=== PATIENT | female | born 1950 | race Caucasian/White ===

== ENCOUNTER 2017-12-19 14:19 | Emergency (ER) | payer OTHER ==
[2017-12-19 16:09] LABS: ADD MAN DIFF? NO
[2017-12-19 16:11] LABS: WHITE BLOOD COUNT 8.9 10^3/ul (4.8-10.8)
[2017-12-19 16:11] LABS: BASOPHIL # 0.1 10^3/ul (0.0-0.1); BASOPHILS % 0.8 % (0.0-2.0); EOSINOPHILS % 0.3 % (0.0-7.0); HEMATOCRIT 37.1 % (37.0-47.0); LYMPHOCYTES % 34.4 % (15.0-51.0); MEAN CORPUSCULAR HEMOGLOBIN 27.6 pg (29.0-33.0); MEAN CORPUSCULAR HGB CONC 32.3 g/dl (32.0-37.0); MEAN CORPUSCULAR VOLUME 85.5 fl (82.0-101.0); MEAN PLATELET VOLUME 9.4 fl (7.4-10.4); MONOCYTES % 10.8 % (0.0-11.0); NEUTROPHIL # 4.6 10^3/ul (1.6-7.5); NEUTROPHILS % 52.5 % (39.0-77.0); PLATELET COUNT 545 10^3/UL (140-415); RED BLOOD COUNT 4.34 10^6/ul (4.20-5.40); RED CELL DISTRIBUTION WIDTH 16.2 % (11.5-14.5)
[2017-12-19 16:35] LABS: ALANINE AMINOTRANSFERASE 47 IU/L (13-69); ALBUMIN 2.9 g/dl (3.3-4.9); ALBUMIN/GLOBULIN RATIO 0.85; ALKALINE PHOSPHATASE 153 IU/L (42-121); ANION GAP 15 (8-16); ASPARTATE AMINO TRANSFERASE 34 IU/L (15-46); BILIRUBIN,INDIRECT 0.2 mg/dl (0-1.1); BILIRUBIN,TOTAL 0.2 mg/dl (0.2-1.3); BLOOD UREA NITROGEN 6 mg/dl (7-20); CALCIUM 9.3 mg/dl (8.4-10.2); CARBON DIOXIDE 25 mmol/L (21-31); CHLORIDE 104 mmol/L (97-110); CREATININE 0.49 mg/dl (0.44-1.00); GLUCOSE 86 mg/dl (70-220); POTASSIUM 3.7 mmol/L (3.5-5.1); SODIUM 140 mmol/L (135-144); TOTAL PROTEIN 6.3 g/dl (6.1-8.1)
[2017-12-19 16:43] LABS: INR 1.28; PROTIME 16.2 Sec (11.9-14.9); PT RATIO 1.3
[2017-12-19 16:44] LABS: PARTIAL THROMBOPLASTIN TIME 46.2 Sec (25.0-35.0)
[2017-12-19 16:47] LABS: LACTIC ACID 2.4 mmol/L (0.5-2.0)
[2017-12-19 16:56] LABS: ADD UMIC YES; UR ASCORBIC ACID 40 mg/dL (NEGATIVE); UR BACTERIA FEW /HPF (NONE SEEN); UR BILIRUBIN (Dip) NEGATIVE (NEGATIVE); UR BLOOD (Dip) NEGATIVE (NEGATIVE); UR CLARITY CLOUDY (CLEAR); UR COLOR YELLOW (YELLOW); UR GLUCOSE (Dip) 3+ mg/dL (NEGATIVE); UR KETONES (Dip) NEGATIVE (NEGATIVE); UR LEUKOCYTE ESTERASE (Dip) 1+ Leu/ul (NEGATIVE); UR MUCUS FEW /HPF (NONE SEEN); UR NITRITE (Dip) NEGATIVE (NEGATIVE); UR RBC 2 /HPF (0-5); UR SPECIFIC GRAVITY (Dip) 1.015 (1.003-1.030); UR SQUAMOUS EPITHELIAL CELL FEW /HPF (FEW); UR TOTAL PROTEIN (Dip) NEGATIVE (NEGATIVE); UR UROBILINOGEN (Dip) NEGATIVE (NEGATIVE); UR WBC 29 /HPF (0-5)
[2017-12-19] MEDS: SOD CHLORIDE 0.9% 1,000 ML IV ×2 (16:56→19:24)
[2017-12-19] MEDS: CIPROFLOXACIN 400MG/D5W 200 ML IVPB ×2 (17:28→19:24)
[2017-12-19] MEDS: metroNIDAZOLE 500 MG/NS (PMX) 100 ML IVPB (17:34)
[2017-12-19 18:00] LABS: LACTIC ACID 1.6 mmol/L (0.5-2.0)
== END 2017-12-19 21:50 | disposition home or self-care (01) ==
LOC: E/R 14:19
DX: K57.92 Diverticulitis of intestine, part unspecified, without perforation or abscess without bleeding (principal); N39.0 Urinary tract infection, site not specified; E86.0 Dehydration; R07.9 Chest pain, unspecified; I10 Essential (primary) hypertension; E11.9 Type 2 diabetes mellitus without complications; Z79.4 Long term (current) use of insulin
CPT/HCPCS: 36415; 71045; 74176; 80053; 81001; 83605; 85025; 85610; 85730; 87040; 87086; 93005; 96361; 96365; 96375; 99285-25

== ENCOUNTER 2017-12-21 17:44 | Inpatient (IN) | payer OTHER ==
[2017-12-21 21:39] LABS: ADD MAN DIFF? NO
[2017-12-21 21:42] LABS: BASOPHIL # 0.1 10^3/ul (0.0-0.1); BASOPHILS % 0.9 % (0.0-2.0); EOSINOPHILS # 0.1 10^3/ul (0.0-0.5); EOSINOPHILS % 0.7 % (0.0-7.0); HEMATOCRIT 34.3 % (37.0-47.0); HEMOGLOBIN 11.5 g/dl (12.0-16.0); LYMPHOCYTES # 2.9 10^3/ul (0.8-2.9); LYMPHOCYTES % 30.2 % (15.0-51.0); MEAN CORPUSCULAR HEMOGLOBIN 28.1 pg (29.0-33.0); MEAN CORPUSCULAR HGB CONC 33.5 g/dl (32.0-37.0); MEAN CORPUSCULAR VOLUME 83.9 fl (82.0-101.0); MEAN PLATELET VOLUME 9.1 fl (7.4-10.4); MONOCYTE # 1.1 10^3/ul (0.3-0.9); MONOCYTES % 11.8 % (0.0-11.0); NEUTROPHIL # 5.3 10^3/ul (1.6-7.5); PLATELET COUNT 563 10^3/UL (140-415); RED BLOOD COUNT 4.09 10^6/ul (4.20-5.40); RED CELL DISTRIBUTION WIDTH 16.6 % (11.5-14.5)
[2017-12-21 21:42] LABS: WHITE BLOOD COUNT 9.6 10^3/ul (4.8-10.8)
[2017-12-21] MEDS: ONDANSETRON 4 MG INJ IV ×2 (21:54→23:12)
[2017-12-21] MEDS: PIPER-TAZO 3.375 GM IV (PMX) 100 ML IVPB (21:55)
[2017-12-21] MEDS: SOD CHLORIDE 0.9% 1,000 ML IV (21:55)
[2017-12-21 22:02] LABS: ALANINE AMINOTRANSFERASE 42 IU/L (13-69); ALBUMIN 3.3 g/dl (3.3-4.9); ALBUMIN/GLOBULIN RATIO 1.03; ALKALINE PHOSPHATASE 130 IU/L (42-121); ANION GAP 16 (8-16); ASPARTATE AMINO TRANSFERASE 40 IU/L (15-46); BILIRUBIN,INDIRECT 0.1 mg/dl (0-1.1); BILIRUBIN,TOTAL 0.1 mg/dl (0.2-1.3); BLOOD UREA NITROGEN 3 mg/dl (7-20); CALCIUM 8.8 mg/dl (8.4-10.2); CARBON DIOXIDE 23 mmol/L (21-31); CHLORIDE 103 mmol/L (97-110); CREATININE 0.82 mg/dl (0.44-1.00); GLUCOSE 99 mg/dl (70-220); LIPASE 10 U/L (23-300); POTASSIUM 4.1 mmol/L (3.5-5.1); SODIUM 138 mmol/L (135-144); TOTAL PROTEIN 6.5 g/dl (6.1-8.1)
[2017-12-21 22:05] LABS: INR 1.13; PROTIME 14.7 Sec (11.9-14.9); PT RATIO 1.1
[2017-12-21 22:06] LABS: PARTIAL THROMBOPLASTIN TIME 43.5 Sec (25.0-35.0)
[2017-12-21 22:22] LABS: TROPONIN-I < 0.012 ng/ml (0.00-0.12)
[2017-12-21 23:09] LABS: LACTIC ACID 1.3 mmol/L (0.5-2.0)
[2017-12-21] MEDS: morphine 4 MG/ML VIAL IV (23:12)
[2017-12-21] MEDS ORDERED: ACETAMINOPHEN 325 MG TAB PO (23:30)
[2017-12-21] MEDS ORDERED: ONDANSETRON 4 MG INJ IV (23:30)
[2017-12-22] MEDS ORDERED: NACL 0.9% 3 ML SYG IV
[2017-12-22] MEDS ORDERED: ALBUTEROL/IPRATROPIUM (NEB) 3 ML AMP HHN
[2017-12-22] MEDS: SOD CHLORIDE 0.9% 1,000 ML IV (00:33)
[2017-12-22 00:34] LABS: LACTIC ACID 1.2 mmol/L (0.5-2.0)
[2017-12-22] MEDS: INSULIN ASPART [NOVOLOG] 3 ML PEN SC ×5 (01:00→16:42)
[2017-12-22] MEDS: ACCU-CHEK XX (02:00)
[2017-12-22] MEDS: DEXTROSE 5%-0.45% NACL 1,000 ML IV ×2 (02:32→09:35)
[2017-12-22 04:29] LABS: LACTIC ACID 0.9 mmol/L (0.5-2.0)
[2017-12-22 05:36] LABS: ADD UMIC YES; UR ASCORBIC ACID NEGATIVE (NEGATIVE); UR BACTERIA FEW /HPF (NONE SEEN); UR BILIRUBIN (Dip) NEGATIVE (NEGATIVE); UR BLOOD (Dip) NEGATIVE (NEGATIVE); UR BUDDING YEAST FEW /HPF (NONE SEEN); UR CLARITY CLOUDY (CLEAR); UR COLOR YELLOW (YELLOW); UR GLUCOSE (Dip) 3+ mg/dL (NEGATIVE); UR KETONES (Dip) NEGATIVE (NEGATIVE); UR LEUKOCYTE ESTERASE (Dip) 3+ Leu/ul (NEGATIVE); UR MUCUS FEW /HPF (NONE SEEN); UR NITRITE (Dip) NEGATIVE (NEGATIVE); UR NONSQUAMOUS EPITHELIAL CELL 3 /HPF (NONE SEEN); UR RBC 10 /HPF (0-5); UR SPECIFIC GRAVITY (Dip) 1.007 (1.003-1.030); UR SQUAMOUS EPITHELIAL CELL MODERATE /HPF (FEW); UR TOTAL PROTEIN (Dip) NEGATIVE (NEGATIVE); UR UROBILINOGEN (Dip) NEGATIVE (NEGATIVE); UR WBC 154 /HPF (0-5)
[2017-12-22] MEDS: metroNIDAZOLE 500 MG/NS (PMX) 100 ML IVPB ×2 (05:51→13:43)
[2017-12-22] MEDS: morphine 2 MG INJ IV ×2 (06:01→19:16)
[2017-12-22 07:42] LABS: ADD MAN DIFF? NO
[2017-12-22 07:50] LABS: WHITE BLOOD COUNT 6.5 10^3/ul (4.8-10.8)
[2017-12-22 07:50] LABS: BASOPHIL # 0.1 10^3/ul (0.0-0.1); BASOPHILS % 1.1 % (0.0-2.0); EOSINOPHILS # 0.1 10^3/ul (0.0-0.5); EOSINOPHILS % 1.7 % (0.0-7.0); HEMATOCRIT 29.2 % (37.0-47.0); HEMOGLOBIN 9.5 g/dl (12.0-16.0); LYMPHOCYTES # 2.1 10^3/ul (0.8-2.9); LYMPHOCYTES % 32.4 % (15.0-51.0); MEAN CORPUSCULAR HEMOGLOBIN 27.5 pg (29.0-33.0); MEAN CORPUSCULAR HGB CONC 32.5 g/dl (32.0-37.0); MEAN CORPUSCULAR VOLUME 84.6 fl (82.0-101.0); MEAN PLATELET VOLUME 9.6 fl (7.4-10.4); MONOCYTES % 15.5 % (0.0-11.0); NEUTROPHIL # 3.1 10^3/ul (1.6-7.5); NEUTROPHILS % 48.5 % (39.0-77.0); PLATELET COUNT 462 10^3/UL (140-415); RED BLOOD COUNT 3.45 10^6/ul (4.20-5.40); RED CELL DISTRIBUTION WIDTH 16.7 % (11.5-14.5)
[2017-12-22 08:37] LABS: ALANINE AMINOTRANSFERASE 33 IU/L (13-69); ALBUMIN 2.3 g/dl (3.3-4.9); ALBUMIN/GLOBULIN RATIO 0.92; ALKALINE PHOSPHATASE 101 IU/L (42-121); ANION GAP 13 (8-16); ASPARTATE AMINO TRANSFERASE 24 IU/L (15-46); BILIRUBIN,INDIRECT 0.1 mg/dl (0-1.1); BILIRUBIN,TOTAL 0.1 mg/dl (0.2-1.3); BLOOD UREA NITROGEN 2 mg/dl (7-20); CALCIUM 7.8 mg/dl (8.4-10.2); CARBON DIOXIDE 20 mmol/L (21-31); CHLORIDE 111 mmol/L (97-110); CREATININE 0.76 mg/dl (0.44-1.00); GLUCOSE 97 mg/dl (70-220); PHOSPHORUS 4.9 mg/dl (2.5-4.9); POTASSIUM 3.3 mmol/L (3.5-5.1); SODIUM 141 mmol/L (135-144); TOTAL PROTEIN 4.8 g/dl (6.1-8.1)
[2017-12-22] MEDS: LISINOPRIL 5 MG TAB PO (08:40)
[2017-12-22] MEDS: FAMOTIDINE 20 MG INJ IV ×2 (08:40→21:51)
[2017-12-22] MEDS: CIPROFLOXACIN 400MG/D5W 200 ML IVPB (10:16)
[2017-12-22] MEDS: ONDANSETRON 4 MG INJ IV ×2 (12:21→19:17)
[2017-12-22] MEDS: PIPER-TAZO 3.375 GM IV (PMX) 100 ML IVPB (15:15)
[2017-12-22] MEDS ORDERED: GLUCAGON 1 MG INJ IM (16:30)
[2017-12-22] MEDS ORDERED: GLUCOSE GEL 15 GRAM TUBE PO ×2 (16:30)
[2017-12-22] MEDS ORDERED: DEXTROSE 50% 50 ML SYRINGE IV (16:30)
[2017-12-22] MEDS ORDERED: GLUCOSE GEL 15 GRAM TUBE BUCCAL (16:30)
[2017-12-22] MEDS: 1/2 NS + KCL 20 MEQ 1,000 ML IV (16:38)
[2017-12-22] MEDS: POTASSIUM CHLORIDE (SR) 20 MEQ TAB PO (16:38)
[2017-12-22] MEDS ORDERED: INSULIN ASPART [NOVOLOG] 3 ML PEN SC (21:00)
[2017-12-22] MEDS: Insulin NOVOLOG SS MILD Algorithm (SS with meals and bedtime) SC (21:00)
[2017-12-22] MEDS: ATORVASTATIN 10 MG TAB PO (21:51)
[2017-12-22] MEDS: INSULIN GLARGINE [LANtus] 3 ML PEN SC (22:00)
[2017-12-23] MEDS: PIPER-TAZO 3.375 GM IV (PMX) 100 ML IVPB ×4 (00:17→18:03)
[2017-12-23] MEDS: ACCU-CHEK XX (02:00)
[2017-12-23] MEDS ORDERED: ACCUCHECK AT 2AM (Patients on SS coverage) XX (02:00)
[2017-12-23] MEDS: morphine 2 MG INJ IV ×2 (04:56→16:40)
[2017-12-23] MEDS: ONDANSETRON 4 MG INJ IV (04:56)
[2017-12-23] MEDS: 1/2 NS + KCL 20 MEQ 1,000 ML IV ×3 (04:56→21:29)
[2017-12-23 05:46] LABS: ADD MAN DIFF? NO
[2017-12-23 05:54] LABS: BASOPHIL # 0.1 10^3/ul (0.0-0.1); EOSINOPHILS # 0.1 10^3/ul (0.0-0.5); EOSINOPHILS % 1.6 % (0.0-7.0); HEMATOCRIT 30.5 % (37.0-47.0); LYMPHOCYTES % 29.1 % (15.0-51.0); MEAN CORPUSCULAR HEMOGLOBIN 27.8 pg (29.0-33.0); MEAN CORPUSCULAR HGB CONC 32.8 g/dl (32.0-37.0); MEAN CORPUSCULAR VOLUME 84.7 fl (82.0-101.0); MEAN PLATELET VOLUME 9.1 fl (7.4-10.4); MONOCYTES % 13.9 % (0.0-11.0); NEUTROPHIL # 3.7 10^3/ul (1.6-7.5); NEUTROPHILS % 53.5 % (39.0-77.0); PLATELET COUNT 473 10^3/UL (140-415)
[2017-12-23 06:13] LABS: ANION GAP 12 (8-16); CALCIUM 8.1 mg/dl (8.4-10.2); CARBON DIOXIDE 23 mmol/L (21-31); CHLORIDE 115 mmol/L (97-110); CREATININE 0.63 mg/dl (0.44-1.00); GLUCOSE 68 mg/dl (70-220); POTASSIUM 3.9 mmol/L (3.5-5.1); SODIUM 146 mmol/L (135-144)
[2017-12-23 06:18] LABS: BLOOD UREA NITROGEN < 2 mg/dl (7-20)
[2017-12-23] MEDS: Insulin NOVOLOG SS MILD Algorithm (SS with meals and bedtime) SC ×4 (07:05→21:00)
[2017-12-23] MEDS: LISINOPRIL 5 MG TAB PO (08:22)
[2017-12-23] MEDS: FAMOTIDINE 20 MG INJ IV ×2 (08:31→21:22)
[2017-12-23] MEDS: ATORVASTATIN 10 MG TAB PO (21:22)
[2017-12-23] MEDS: INSULIN GLARGINE [LANtus] 3 ML PEN SC (21:23)
[2017-12-24] MEDS: ACCU-CHEK XX (02:01)
[2017-12-24] MEDS: DEXTROSE 50% 50 ML SYRINGE IV (02:08)
[2017-12-24] MEDS: 1/2 NS + KCL 20 MEQ 1,000 ML IV ×2 (03:23→15:51)
[2017-12-24] MEDS: PIPER-TAZO 3.375 GM IV (PMX) 100 ML IVPB ×5 (05:29→23:31)
[2017-12-24] MEDS: morphine 2 MG INJ IV ×3 (05:30→23:25)
[2017-12-24 06:11] LABS: ADD MAN DIFF? NO
[2017-12-24 06:18] LABS: WHITE BLOOD COUNT 6.8 10^3/ul (4.8-10.8)
[2017-12-24 06:18] LABS: BASOPHIL # 0.1 10^3/ul (0.0-0.1); BASOPHILS % 0.9 % (0.0-2.0); EOSINOPHILS # 0.1 10^3/ul (0.0-0.5); EOSINOPHILS % 1.8 % (0.0-7.0); HEMATOCRIT 31.1 % (37.0-47.0); HEMOGLOBIN 10.1 g/dl (12.0-16.0); LYMPHOCYTES # 2.2 10^3/ul (0.8-2.9); LYMPHOCYTES % 32.5 % (15.0-51.0); MEAN CORPUSCULAR HEMOGLOBIN 27.7 pg (29.0-33.0); MEAN CORPUSCULAR HGB CONC 32.5 g/dl (32.0-37.0); MEAN CORPUSCULAR VOLUME 85.2 fl (82.0-101.0); MONOCYTE # 0.9 10^3/ul (0.3-0.9); MONOCYTES % 13.2 % (0.0-11.0); NEUTROPHIL # 3.5 10^3/ul (1.6-7.5); NEUTROPHILS % 50.9 % (39.0-77.0); PLATELET COUNT 471 10^3/UL (140-415); RED BLOOD COUNT 3.65 10^6/ul (4.20-5.40); RED CELL DISTRIBUTION WIDTH 17.1 % (11.5-14.5)
[2017-12-24 06:40] LABS: ANION GAP 12 (8-16); CALCIUM 8.3 mg/dl (8.4-10.2); CARBON DIOXIDE 23 mmol/L (21-31); CHLORIDE 115 mmol/L (97-110); CREATININE 0.53 mg/dl (0.44-1.00); GLUCOSE 78 mg/dl (70-220); POTASSIUM 3.8 mmol/L (3.5-5.1); SODIUM 146 mmol/L (135-144)
[2017-12-24 06:41] LABS: BLOOD UREA NITROGEN < 2 mg/dl (7-20)
[2017-12-24] MEDS: Insulin NOVOLOG SS MILD Algorithm (SS with meals and bedtime) SC ×4 (08:00→20:52)
[2017-12-24] MEDS: FAMOTIDINE 20 MG INJ IV ×2 (08:34→20:39)
[2017-12-24] MEDS: LISINOPRIL 5 MG TAB PO (08:34)
[2017-12-24] MEDS: ATORVASTATIN 10 MG TAB PO (20:39)
[2017-12-24] MEDS: INSULIN GLARGINE [LANtus] 3 ML PEN SC (20:51)
[2017-12-25] MEDS: ACCU-CHEK XX (01:22)
[2017-12-25] MEDS: 1/2 NS + KCL 20 MEQ 1,000 ML IV ×3 (04:56→23:46)
[2017-12-25] MEDS: PIPER-TAZO 3.375 GM IV (PMX) 100 ML IVPB ×3 (05:00→20:44)
[2017-12-25] MEDS: Insulin NOVOLOG SS MILD Algorithm (SS with meals and bedtime) SC ×4 (07:58→21:00)
[2017-12-25] MEDS: LISINOPRIL 5 MG TAB PO (09:10)
[2017-12-25] MEDS: FAMOTIDINE 20 MG INJ IV ×2 (09:11→21:37)
[2017-12-25] MEDS: morphine 2 MG INJ IV (09:13)
[2017-12-25] MEDS ORDERED: VANCOMYCIN IV PER PHARMACY XX (14:30)
[2017-12-25 14:37] LABS: HDL CHOLESTEROL 27 mg/dl (35-98); TRIGLYCERIDES 66 mg/dl (0-149)
[2017-12-25 14:43] LABS: CHOLESTEROL < 50 mg/dl (100-200)
[2017-12-25] MEDS: FLUCONAZOLE 150 MG TAB PO (14:59)
[2017-12-25] MEDS: VANCOMYCIN 1.25 GM in SOD CHLORIDE 0.9% 250 ML IVPB (16:19)
[2017-12-25] MEDS: ATORVASTATIN 10 MG TAB PO (21:37)
[2017-12-25] MEDS: INSULIN GLARGINE [LANtus] 3 ML PEN SC (21:40)
[2017-12-26] MEDS: ACETAMINOPHEN 325 MG TAB PO (00:45)
[2017-12-26] MEDS: PIPER-TAZO 3.375 GM IV (PMX) 100 ML IVPB ×4 (00:45→18:22)
[2017-12-26] MEDS: ACCU-CHEK XX (02:00)
[2017-12-26] MEDS: VANCOMYCIN 750 MG in DEXTROSE 5% 150 ML IVPB ×2 (04:40→16:22)
[2017-12-26 06:01] LABS: ADD MAN DIFF? NO
[2017-12-26 06:10] LABS: BASOPHIL # 0.1 10^3/ul (0.0-0.1); BASOPHILS % 1.4 % (0.0-2.0); EOSINOPHILS # 0.1 10^3/ul (0.0-0.5); EOSINOPHILS % 2.1 % (0.0-7.0); HEMATOCRIT 30.3 % (37.0-47.0); HEMOGLOBIN 9.9 g/dl (12.0-16.0); LYMPHOCYTES # 2.6 10^3/ul (0.8-2.9); LYMPHOCYTES % 45.1 % (15.0-51.0); MEAN CORPUSCULAR HEMOGLOBIN 27.5 pg (29.0-33.0); MEAN CORPUSCULAR HGB CONC 32.7 g/dl (32.0-37.0); MEAN CORPUSCULAR VOLUME 84.2 fl (82.0-101.0); MEAN PLATELET VOLUME 9.1 fl (7.4-10.4); MONOCYTE # 0.8 10^3/ul (0.3-0.9); NEUTROPHIL # 2.2 10^3/ul (1.6-7.5); NEUTROPHILS % 37.1 % (39.0-77.0); PLATELET COUNT 408 10^3/UL (140-415)
[2017-12-26 06:10] LABS: WHITE BLOOD COUNT 5.9 10^3/ul (4.8-10.8)
[2017-12-26 06:46] LABS: ANION GAP 11 (8-16); BLOOD UREA NITROGEN 2 mg/dl (7-20); CALCIUM 8.6 mg/dl (8.4-10.2); CARBON DIOXIDE 24 mmol/L (21-31); CHLORIDE 115 mmol/L (97-110); GLUCOSE 70 mg/dl (70-220); POTASSIUM 3.4 mmol/L (3.5-5.1); SODIUM 147 mmol/L (135-144)
[2017-12-26] MEDS: Insulin NOVOLOG SS MILD Algorithm (SS with meals and bedtime) SC ×4 (07:57→20:32)
[2017-12-26] MEDS: LISINOPRIL 5 MG TAB PO (08:21)
[2017-12-26] MEDS: FAMOTIDINE 20 MG INJ IV ×2 (08:22→20:24)
[2017-12-26] MEDS: POTASSIUM CHLORIDE (SR) 20 MEQ TAB PO (10:07)
[2017-12-26] MEDS: 1/2 NS + KCL 20 MEQ 1,000 ML IV ×2 (10:42→20:00)
[2017-12-26] MEDS: POTASSIUM CHLORIDE 20 MEQ POWDER FOR ORAL SOLN PO (12:38)
[2017-12-26] MEDS: LACTOBACILLUS RHAMNOSUS CAP PO ×2 (12:38→17:39)
[2017-12-26] MEDS: morphine 2 MG INJ IV (17:54)
[2017-12-26] MEDS: ATORVASTATIN 10 MG TAB PO (20:24)
[2017-12-26] MEDS: INSULIN GLARGINE [LANtus] 3 ML PEN SC (20:32)
[2017-12-27] MEDS: 1/2 NS + KCL 20 MEQ 1,000 ML IV ×3 (00:43→17:11)
[2017-12-27] MEDS: PIPER-TAZO 3.375 GM IV (PMX) 100 ML IVPB ×4 (00:43→17:11)
[2017-12-27] MEDS: ACCU-CHEK XX (02:00)
[2017-12-27 03:26] LABS: ADD MAN DIFF? NO
[2017-12-27 03:48] LABS: WHITE BLOOD COUNT 5.9 10^3/ul (4.8-10.8)
[2017-12-27 03:48] LABS: BASOPHIL # 0.1 10^3/ul (0.0-0.1); BASOPHILS % 1.2 % (0.0-2.0); EOSINOPHILS # 0.1 10^3/ul (0.0-0.5); EOSINOPHILS % 2.2 % (0.0-7.0); HEMATOCRIT 32.1 % (37.0-47.0); HEMOGLOBIN 10.5 g/dl (12.0-16.0); LYMPHOCYTES # 2.3 10^3/ul (0.8-2.9); LYMPHOCYTES % 38.7 % (15.0-51.0); MEAN CORPUSCULAR HEMOGLOBIN 27.9 pg (29.0-33.0); MEAN CORPUSCULAR HGB CONC 32.7 g/dl (32.0-37.0); MEAN CORPUSCULAR VOLUME 85.4 fl (82.0-101.0); MEAN PLATELET VOLUME 9.1 fl (7.4-10.4); MONOCYTE # 0.8 10^3/ul (0.3-0.9); MONOCYTES % 13.1 % (0.0-11.0); NEUTROPHIL # 2.6 10^3/ul (1.6-7.5); NEUTROPHILS % 44.1 % (39.0-77.0); PLATELET COUNT 442 10^3/UL (140-415); RED BLOOD COUNT 3.76 10^6/ul (4.20-5.40); RED CELL DISTRIBUTION WIDTH 17.1 % (11.5-14.5)
[2017-12-27 03:54] LABS: ANION GAP 12 (8-16); BLOOD UREA NITROGEN 2 mg/dl (7-20); CALCIUM 8.8 mg/dl (8.4-10.2); CARBON DIOXIDE 24 mmol/L (21-31); CHLORIDE 113 mmol/L (97-110); CREATININE 0.51 mg/dl (0.44-1.00); GLUCOSE 63 mg/dl (70-220); POTASSIUM 3.5 mmol/L (3.5-5.1); SODIUM 145 mmol/L (135-144)
[2017-12-27 04:00] LABS: VANCOMYCIN,TROUGH 9.2 ug/ml (10.0-20.0)
[2017-12-27] MEDS: VANCOMYCIN 750 MG in DEXTROSE 5% 150 ML IVPB (05:19)
[2017-12-27] MEDS: Insulin NOVOLOG SS MILD Algorithm (SS with meals and bedtime) SC ×4 (07:45→20:33)
[2017-12-27] MEDS: LACTOBACILLUS RHAMNOSUS CAP PO ×3 (07:45→17:11)
[2017-12-27] MEDS: LISINOPRIL 5 MG TAB PO (08:32)
[2017-12-27] MEDS: FAMOTIDINE 20 MG INJ IV (08:33)
[2017-12-27] MEDS: POTASSIUM CHLORIDE (SR) 20 MEQ TAB PO (11:04)
[2017-12-27] MEDS: METOCLOPRAMIDE 10 MG INJ IV (17:11)
[2017-12-27] MEDS: ATORVASTATIN 10 MG TAB PO (20:30)
[2017-12-27] MEDS: INSULIN GLARGINE [LANtus] 3 ML PEN SC (20:36)
[2017-12-28] MEDS: PIPER-TAZO 3.375 GM IV (PMX) 100 ML IVPB ×4 (00:17→19:00)
[2017-12-28] MEDS: ACCU-CHEK XX (00:19)
[2017-12-28] MEDS: METOCLOPRAMIDE 10 MG INJ IV ×4 (00:19→18:59)
[2017-12-28] MEDS: 1/2 NS + KCL 20 MEQ 1,000 ML IV ×2 (02:23→19:38)
[2017-12-28] MEDS: INSULIN ASPART [NOVOLOG] 3 ML PEN SC ×5 (05:00→20:40)
[2017-12-28] MEDS: PANTOPRAZOLE 40 MG INJ IV (05:38)
[2017-12-28 07:18] LABS: ADD MAN DIFF? NO
[2017-12-28 07:24] LABS: WHITE BLOOD COUNT 7.9 10^3/ul (4.8-10.8)
[2017-12-28 07:24] LABS: BASOPHIL # 0.1 10^3/ul (0.0-0.1); EOSINOPHILS # 0.1 10^3/ul (0.0-0.5); EOSINOPHILS % 1.8 % (0.0-7.0); HEMATOCRIT 34.3 % (37.0-47.0); LYMPHOCYTES # 3.5 10^3/ul (0.8-2.9); LYMPHOCYTES % 44.3 % (15.0-51.0); MEAN CORPUSCULAR HEMOGLOBIN 27.5 pg (29.0-33.0); MEAN CORPUSCULAR HGB CONC 32.1 g/dl (32.0-37.0); MEAN CORPUSCULAR VOLUME 85.8 fl (82.0-101.0); MONOCYTES % 13.1 % (0.0-11.0); NEUTROPHIL # 3.1 10^3/ul (1.6-7.5); NEUTROPHILS % 39.4 % (39.0-77.0); PLATELET COUNT 463 10^3/UL (140-415)
[2017-12-28 07:52] LABS: ANION GAP 14 (8-16); BLOOD UREA NITROGEN 2 mg/dl (7-20); CALCIUM 9.1 mg/dl (8.4-10.2); CARBON DIOXIDE 24 mmol/L (21-31); CHLORIDE 114 mmol/L (97-110); CREATININE 0.51 mg/dl (0.44-1.00); GLUCOSE 98 mg/dl (70-220); POTASSIUM 3.6 mmol/L (3.5-5.1); SODIUM 148 mmol/L (135-144)
[2017-12-28] MEDS: LACTOBACILLUS RHAMNOSUS CAP PO ×4 (08:00→19:00)
[2017-12-28] MEDS: LISINOPRIL 5 MG TAB PO (09:01)
[2017-12-28] MEDS: VANCOMYCIN 1 GM 250 ML IVPB ×2 (10:38→22:44)
[2017-12-28] MEDS: D5W-0.45 NACL + KCL 20 MEQ 1,000 ML IV (10:38)
[2017-12-28] MEDS: ATORVASTATIN 10 MG TAB PO (20:37)
[2017-12-28] MEDS: INSULIN GLARGINE [LANtus] 3 ML PEN SC (20:41)
[2017-12-28] MEDS: HYPOGLYCEMIA PROTOCOL when Glucose is <70 mg/dL or symptomatic <90 mg/dL. XX (22:41)
[2017-12-28] MEDS: ACETAMINOPHEN 325 MG TAB PO (22:48)
[2017-12-29] MEDS: PIPER-TAZO 3.375 GM IV (PMX) 100 ML IVPB ×5 (00:28→23:43)
[2017-12-29] MEDS: METOCLOPRAMIDE 10 MG INJ IV ×5 (00:28→23:43)
[2017-12-29] MEDS: ACCU-CHEK XX (01:25)
[2017-12-29] MEDS: PANTOPRAZOLE 40 MG INJ IV (06:06)
[2017-12-29 06:19] LABS: ADD MAN DIFF? NO
[2017-12-29 06:29] LABS: WHITE BLOOD COUNT 7.5 10^3/ul (4.8-10.8)
[2017-12-29 06:29] LABS: BASOPHIL # 0.1 10^3/ul (0.0-0.1); BASOPHILS % 0.9 % (0.0-2.0); EOSINOPHILS # 0.1 10^3/ul (0.0-0.5); EOSINOPHILS % 1.6 % (0.0-7.0); HEMATOCRIT 31.1 % (37.0-47.0); HEMOGLOBIN 10.1 g/dl (12.0-16.0); LYMPHOCYTES % 39.7 % (15.0-51.0); MEAN CORPUSCULAR HEMOGLOBIN 27.7 pg (29.0-33.0); MEAN CORPUSCULAR HGB CONC 32.5 g/dl (32.0-37.0); MEAN CORPUSCULAR VOLUME 85.4 fl (82.0-101.0); MEAN PLATELET VOLUME 9.2 fl (7.4-10.4); MONOCYTES % 13.7 % (0.0-11.0); NEUTROPHIL # 3.3 10^3/ul (1.6-7.5); NEUTROPHILS % 43.6 % (39.0-77.0); PLATELET COUNT 401 10^3/UL (140-415); RED BLOOD COUNT 3.64 10^6/ul (4.20-5.40); RED CELL DISTRIBUTION WIDTH 16.8 % (11.5-14.5)
[2017-12-29 07:00] LABS: ANION GAP 11 (8-16); BLOOD UREA NITROGEN < 2 mg/dl (7-20); CALCIUM 8.8 mg/dl (8.4-10.2); CARBON DIOXIDE 23 mmol/L (21-31); CHLORIDE 115 mmol/L (97-110); CREATININE 0.45 mg/dl (0.44-1.00); GLUCOSE 89 mg/dl (70-220); POTASSIUM 3.2 mmol/L (3.5-5.1); SODIUM 146 mmol/L (135-144)
[2017-12-29] MEDS: LACTOBACILLUS RHAMNOSUS CAP PO ×3 (08:01→17:23)
[2017-12-29] MEDS: LISINOPRIL 5 MG TAB PO (08:02)
[2017-12-29] MEDS: morphine 2 MG INJ IV (08:11)
[2017-12-29] MEDS: 1/2 NS + KCL 20 MEQ 1,000 ML IV ×2 (08:12→22:00)
[2017-12-29] MEDS: INSULIN ASPART [NOVOLOG] 3 ML PEN SC ×4 (08:12→20:57)
[2017-12-29] MEDS: ONDANSETRON 4 MG INJ IV (08:18)
[2017-12-29] MEDS: POTASSIUM CHLORIDE (SR) 20 MEQ TAB PO ×2 (10:32→14:54)
[2017-12-29] MEDS: VANCOMYCIN 1 GM 250 ML IVPB ×2 (10:33→22:39)
[2017-12-29] MEDS: BARIUM SULF 2% 450 ML BTL (BERRY SMOOTHIE) PO (19:41)
[2017-12-29] MEDS: ATORVASTATIN 10 MG TAB PO (20:54)
[2017-12-29] MEDS: INSULIN GLARGINE [LANtus] 3 ML PEN SC (20:59)
[2017-12-29] MEDS: SOD CHLORIDE 0.9% 100 ML (22:18)
[2017-12-29] MEDS: IODIXANOL LOCM 100 ML BTL (22:18)
[2017-12-30] MEDS: ACCU-CHEK XX (01:17)
[2017-12-30 05:28] LABS: ADD MAN DIFF? NO
[2017-12-30 05:35] LABS: BASOPHILS % 0.6 % (0.0-2.0); EOSINOPHILS # 0.1 10^3/ul (0.0-0.5); EOSINOPHILS % 1.1 % (0.0-7.0); HEMATOCRIT 32.9 % (37.0-47.0); HEMOGLOBIN 10.5 g/dl (12.0-16.0); LYMPHOCYTES # 3.5 10^3/ul (0.8-2.9); MEAN CORPUSCULAR HGB CONC 31.9 g/dl (32.0-37.0); MEAN CORPUSCULAR VOLUME 84.6 fl (82.0-101.0); MEAN PLATELET VOLUME 9.2 fl (7.4-10.4); MONOCYTE # 1.1 10^3/ul (0.3-0.9); MONOCYTES % 12.1 % (0.0-11.0); NEUTROPHIL # 4.6 10^3/ul (1.6-7.5); NEUTROPHILS % 48.7 % (39.0-77.0); PLATELET COUNT 426 10^3/UL (140-415); RED BLOOD COUNT 3.89 10^6/ul (4.20-5.40)
[2017-12-30 05:35] LABS: WHITE BLOOD COUNT 9.4 10^3/ul (4.8-10.8)
[2017-12-30] MEDS: PIPER-TAZO 3.375 GM IV (PMX) 100 ML IVPB (05:35)
[2017-12-30] MEDS: METOCLOPRAMIDE 10 MG INJ IV ×3 (05:35→18:25)
[2017-12-30] MEDS: PANTOPRAZOLE 40 MG INJ IV (05:35)
[2017-12-30 05:36] LABS: BASOPHIL # 0.1 10^3/ul (0.0-0.1)
[2017-12-30 05:52] LABS: C-REACTIVE PROTEIN 1.7 mg/dl (0.0-0.9)
[2017-12-30 06:53] LABS: ANION GAP 12 (8-16); BLOOD UREA NITROGEN 2 mg/dl (7-20); CALCIUM 9.1 mg/dl (8.4-10.2); CARBON DIOXIDE 25 mmol/L (21-31); CHLORIDE 113 mmol/L (97-110); CREATININE 0.48 mg/dl (0.44-1.00); GLUCOSE 53 mg/dl (70-220); POTASSIUM 3.2 mmol/L (3.5-5.1); SODIUM 147 mmol/L (135-144)
[2017-12-30 07:36] LABS: ERYTHROCYTE SEDIMENTATION RATE 20 mm/Hr (0-30)
[2017-12-30] MEDS: INSULIN ASPART [NOVOLOG] 3 ML PEN SC ×4 (08:15→20:44)
[2017-12-30] MEDS: LISINOPRIL 5 MG TAB PO (08:29)
[2017-12-30] MEDS: LACTOBACILLUS RHAMNOSUS CAP PO ×3 (08:29→18:25)
[2017-12-30] MEDS: ACETAMINOPHEN 325 MG TAB PO (10:00)
[2017-12-30] MEDS ORDERED: metroNIDAZOLE 500 MG/NS (PMX) 100 ML IVPB (10:00)
[2017-12-30] MEDS: CIPROFLOXACIN 400MG/D5W 200 ML IVPB ×2 (10:09→20:37)
[2017-12-30] MEDS: POTASSIUM CHLORIDE (SR) 20 MEQ TAB PO ×2 (10:09→14:15)
[2017-12-30] MEDS: 1/2 NS + KCL 20 MEQ 1,000 ML IV ×2 (11:30→19:00)
[2017-12-30] MEDS: predniSONE 20 MG TAB PO (12:02)
[2017-12-30] MEDS: ONDANSETRON 4 MG INJ IV (13:37)
[2017-12-30] MEDS: metroNIDAZOLE 500 MG/NS (PMX) 100 ML IVPB ×2 (14:15→22:59)
[2017-12-30] MEDS: HYOSCYAMINE 0.125 MG SUBL TAB SL (20:01)
[2017-12-30] MEDS: ATORVASTATIN 10 MG TAB PO (20:37)
[2017-12-30] MEDS: INSULIN GLARGINE [LANtus] 3 ML PEN SC (20:43)
[2017-12-31] MEDS: METOCLOPRAMIDE 10 MG INJ IV ×4 (00:03→20:31)
[2017-12-31] MEDS: ACCU-CHEK XX (02:15)
[2017-12-31] MEDS: metroNIDAZOLE 500 MG/NS (PMX) 100 ML IVPB ×3 (05:23→22:40)
[2017-12-31] MEDS: PANTOPRAZOLE 40 MG INJ IV (05:23)
[2017-12-31] MEDS: INSULIN ASPART [NOVOLOG] 3 ML PEN SC ×5 (07:45→20:37)
[2017-12-31] MEDS: LACTOBACILLUS RHAMNOSUS CAP PO ×3 (07:45→17:29)
[2017-12-31] MEDS: CIPROFLOXACIN 400MG/D5W 200 ML IVPB ×2 (08:23→20:31)
[2017-12-31] MEDS: predniSONE 20 MG TAB PO (08:24)
[2017-12-31] MEDS: LISINOPRIL 5 MG TAB PO (08:24)
[2017-12-31] MEDS: 1/2 NS + KCL 20 MEQ 1,000 ML IV (13:33)
[2017-12-31] MEDS ORDERED: LOPERAMIDE 2 MG CAP PO (16:00)
[2017-12-31] MEDS: ACETAMINOPHEN 325 MG TAB PO (19:23)
[2017-12-31] MEDS: ATORVASTATIN 10 MG TAB PO (20:30)
[2017-12-31] MEDS: INSULIN GLARGINE [LANtus] 3 ML PEN SC (20:38)
[2017-12-31] MEDS: morphine LIQ (10 MG/5 ML) CUP PO (20:39)
[2018-01-01] MEDS: ACCU-CHEK XX (02:48)
[2018-01-01] MEDS: 1/2 NS + KCL 20 MEQ 1,000 ML IV (03:30)
[2018-01-01] MEDS: metroNIDAZOLE 500 MG/NS (PMX) 100 ML IVPB (05:15)
[2018-01-01] MEDS: PANTOPRAZOLE 40 MG INJ IV (05:15)
[2018-01-01] MEDS: INSULIN ASPART [NOVOLOG] 3 ML PEN SC ×7 (08:15→20:52)
[2018-01-01] MEDS: METOCLOPRAMIDE 10 MG INJ IV (08:58)
[2018-01-01] MEDS: LACTOBACILLUS RHAMNOSUS CAP PO ×3 (08:58→17:30)
[2018-01-01] MEDS: CIPROFLOXACIN 400MG/D5W 200 ML IVPB (08:59)
[2018-01-01] MEDS: predniSONE 20 MG TAB PO (08:59)
[2018-01-01] MEDS: LISINOPRIL 5 MG TAB PO (08:59)
[2018-01-01] MEDS: ACETAMINOPHEN 325 MG TAB PO ×2 (09:10→14:52)
[2018-01-01] MEDS: FUROSEMIDE 20 MG INJ IV (12:27)
[2018-01-01] MEDS: metroNIDAZOLE 500 MG TAB PO ×2 (14:50→21:03)
[2018-01-01] MEDS: CIPROFLOXACIN 500 MG TAB PO (17:30)
[2018-01-01] MEDS: ATORVASTATIN 10 MG TAB PO (20:52)
[2018-01-01] MEDS: INSULIN GLARGINE [LANtus] 3 ML PEN SC (21:03)
[2018-01-02] MEDS: ACCU-CHEK XX (02:00)
[2018-01-02] MEDS: CIPROFLOXACIN 500 MG TAB PO (05:21)
[2018-01-02] MEDS: PANTOPRAZOLE 40 MG INJ IV (05:21)
[2018-01-02] MEDS: metroNIDAZOLE 500 MG TAB PO (05:21)
[2018-01-02] MEDS: INSULIN ASPART [NOVOLOG] 3 ML PEN SC ×2 (08:15→12:22)
[2018-01-02] MEDS: predniSONE 20 MG TAB PO (08:16)
[2018-01-02] MEDS: LACTOBACILLUS RHAMNOSUS CAP PO ×2 (08:16→12:29)
[2018-01-02] MEDS: LISINOPRIL 5 MG TAB PO (08:19)
[2018-01-02] MEDS: ONDANSETRON 4 MG INJ IV (08:42)
[2018-01-02] MEDS: morphine LIQ (10 MG/5 ML) CUP PO (10:37)
== END 2018-01-02 13:45 | disposition home or self-care (01) | DRG 392 ==
LOC: MS2 12-24 02:55 → MS3 23:21 → E/R 17:44
PROC: 0DJ08ZZ Inspection of Upper Intestinal Tract, Via Natural or Artificial Opening Endoscopic (ICD-10-PCS; principal; 2017-12-28 17:20)
DX: K57.92 Diverticulitis of intestine, part unspecified, without perforation or abscess without bleeding (principal); N39.0 Urinary tract infection, site not specified; E11.8 Type 2 diabetes mellitus with unspecified complications; Z79.4 Long term (current) use of insulin; I10 Essential (primary) hypertension; R11.2 Nausea with vomiting, unspecified; K76.0 Fatty (change of) liver, not elsewhere classified; K29.70 Gastritis, unspecified, without bleeding; R19.7 Diarrhea, unspecified; M79.89 Other specified soft tissue disorders
CPT/HCPCS: 36415; 70450; 74176; 74177; 76775; 80048; 80053; 80061; 80202; 81001; 82962; 83036; 83605; 83690; 83735; 84100; 84484; 85025; 85610; 85651; 85730; 86140; 87040; 87045; 87075; 87086; 87177; 88305; 88312; 88341; 88342; 93005; 93970; 96374; 96375; 96376; 97161; 99285-25

== ENCOUNTER 2018-01-12 18:11 | Emergency (ER) | payer OTHER ==
[2018-01-12] MEDS: ONDANSETRON 4 MG INJ IV (21:12)
[2018-01-12] MEDS: PANTOPRAZOLE 40 MG INJ IV (21:12)
[2018-01-12] MEDS: SOD CHLORIDE 0.9% 1,000 ML IV (21:12)
[2018-01-12 21:37] LABS: ADD MAN DIFF? NO
[2018-01-12 21:38] LABS: BASOPHIL # 0.1 10^3/ul (0.0-0.1); BASOPHILS % 0.9 % (0.0-2.0); EOSINOPHILS # 0.2 10^3/ul (0.0-0.5); HEMOGLOBIN 12.1 g/dl (12.0-16.0); LYMPHOCYTES # 2.5 10^3/ul (0.8-2.9); LYMPHOCYTES % 25.9 % (15.0-51.0); MEAN CORPUSCULAR HEMOGLOBIN 27.4 pg (29.0-33.0); MEAN CORPUSCULAR HGB CONC 31.8 g/dl (32.0-37.0); MEAN PLATELET VOLUME 9.5 fl (7.4-10.4); MONOCYTES % 10.7 % (0.0-11.0); NEUTROPHIL # 5.8 10^3/ul (1.6-7.5); NEUTROPHILS % 59.8 % (39.0-77.0); PLATELET COUNT 476 10^3/UL (140-415); RED BLOOD COUNT 4.42 10^6/ul (4.20-5.40); RED CELL DISTRIBUTION WIDTH 16.9 % (11.5-14.5)
[2018-01-12 21:38] LABS: WHITE BLOOD COUNT 9.6 10^3/ul (4.8-10.8)
[2018-01-12 21:55] LABS: ALANINE AMINOTRANSFERASE 24 IU/L (13-69); ALBUMIN 3.8 g/dl (3.3-4.9); ALBUMIN/GLOBULIN RATIO 1.02; ALKALINE PHOSPHATASE 114 IU/L (42-121); ANION GAP 17 (8-16); ASPARTATE AMINO TRANSFERASE 49 IU/L (15-46); BILIRUBIN,INDIRECT 0.2 mg/dl (0-1.1); BILIRUBIN,TOTAL 0.2 mg/dl (0.2-1.3); BLOOD UREA NITROGEN 13 mg/dl (7-20); CALCIUM 9.5 mg/dl (8.4-10.2); CARBON DIOXIDE 25 mmol/L (21-31); CHLORIDE 101 mmol/L (97-110); CREATININE 3.56 mg/dl (0.44-1.00); GLUCOSE 116 mg/dl (70-220); LIPASE 19 U/L (23-300); POTASSIUM 4.7 mmol/L (3.5-5.1); SODIUM 138 mmol/L (135-144); TOTAL PROTEIN 7.5 g/dl (6.1-8.1)
[2018-01-12 22:08] LABS: ADD UMIC YES; UR ASCORBIC ACID NEGATIVE (NEGATIVE); UR BILIRUBIN (Dip) NEGATIVE (NEGATIVE); UR BLOOD (Dip) NEGATIVE (NEGATIVE); UR CLARITY SLIGHTLY CLOUDY (CLEAR); UR COLOR YELLOW (YELLOW); UR GLUCOSE (Dip) NEGATIVE (NEGATIVE); UR KETONES (Dip) NEGATIVE (NEGATIVE); UR LEUKOCYTE ESTERASE (Dip) 1+ Leu/ul (NEGATIVE); UR NITRITE (Dip) NEGATIVE (NEGATIVE); UR RBC 1 /HPF (0-5); UR SPECIFIC GRAVITY (Dip) 1.005 (1.003-1.030); UR SQUAMOUS EPITHELIAL CELL MODERATE /HPF (FEW); UR TOTAL PROTEIN (Dip) NEGATIVE (NEGATIVE); UR TRANSITIONAL EPI CELL FEW /HPF (NONE SEEN); UR UROBILINOGEN (Dip) NEGATIVE (NEGATIVE); UR WBC 8 /HPF (0-5)
[2018-01-12] MEDS: ACETAMINOPHEN 325 MG TAB PO (22:11)
[2018-01-12] MEDS: traMADol 50 MG TAB PO (22:11)
== END 2018-01-13 00:17 | disposition home or self-care (01) ==
LOC: FTE 01-13 00:17
DX: N30.00 Acute cystitis without hematuria (principal); R19.7 Diarrhea, unspecified; R79.89 Other specified abnormal findings of blood chemistry; E11.9 Type 2 diabetes mellitus without complications; Z79.4 Long term (current) use of insulin; Z87.19 Personal history of other diseases of the digestive system
CPT/HCPCS: 36415; 80053; 81001; 82962; 83690; 85025; 96361; 96374; 96375; 99284-25

== ENCOUNTER 2018-01-21 14:40 | Inpatient (IN) | payer OTHER ==
[2018-01-21 19:33] LABS: ADD MAN DIFF? NO
[2018-01-21] MEDS: ONDANSETRON 4 MG INJ IV (19:35)
[2018-01-21] MEDS: SOD CHLORIDE 0.9% 500 ML IV (19:36)
[2018-01-21 19:37] LABS: WHITE BLOOD COUNT 12.1 10^3/ul (4.8-10.8)
[2018-01-21 19:37] LABS: BASOPHIL # 0.1 10^3/ul (0.0-0.1); BASOPHILS % 0.7 % (0.0-2.0); EOSINOPHILS # 0.3 10^3/ul (0.0-0.5); EOSINOPHILS % 2.3 % (0.0-7.0); HEMATOCRIT 41.3 % (37.0-47.0); HEMOGLOBIN 13.3 g/dl (12.0-16.0); LYMPHOCYTES # 2.4 10^3/ul (0.8-2.9); LYMPHOCYTES % 20.1 % (15.0-51.0); MEAN CORPUSCULAR HEMOGLOBIN 27.1 pg (29.0-33.0); MEAN CORPUSCULAR HGB CONC 32.2 g/dl (32.0-37.0); MEAN CORPUSCULAR VOLUME 84.1 fl (82.0-101.0); MEAN PLATELET VOLUME 9.1 fl (7.4-10.4); MONOCYTE # 0.8 10^3/ul (0.3-0.9); MONOCYTES % 6.5 % (0.0-11.0); NEUTROPHIL # 8.4 10^3/ul (1.6-7.5); NEUTROPHILS % 69.6 % (39.0-77.0); PLATELET COUNT 495 10^3/UL (140-415); RED BLOOD COUNT 4.91 10^6/ul (4.20-5.40); RED CELL DISTRIBUTION WIDTH 15.1 % (11.5-14.5)
[2018-01-21 19:44] LABS: ADD UMIC NO; UR ASCORBIC ACID 40 mg/dL (NEGATIVE); UR BILIRUBIN (Dip) NEGATIVE (NEGATIVE); UR BLOOD (Dip) NEGATIVE (NEGATIVE); UR CLARITY SLIGHTLY CLOUDY (CLEAR); UR COLOR YELLOW (YELLOW); UR GLUCOSE (Dip) 2+ mg/dL (NEGATIVE); UR KETONES (Dip) NEGATIVE (NEGATIVE); UR LEUKOCYTE ESTERASE (Dip) NEGATIVE Leu/ul (NEGATIVE); UR NITRITE (Dip) NEGATIVE (NEGATIVE); UR NONSQUAMOUS EPITHELIAL CELL 2 /HPF (NONE SEEN); UR RBC 1 /HPF (0-5); UR SPECIFIC GRAVITY (Dip) 1.012 (1.003-1.030); UR SQUAMOUS EPITHELIAL CELL FEW /HPF (FEW); UR TOTAL PROTEIN (Dip) NEGATIVE (NEGATIVE); UR UROBILINOGEN (Dip) NEGATIVE (NEGATIVE); UR WBC 11 /HPF (0-5)
[2018-01-21 19:55] LABS: ANION GAP 16 (8-16); BLOOD UREA NITROGEN 22 mg/dl (7-20); CALCIUM 9.9 mg/dl (8.4-10.2); CARBON DIOXIDE 29 mmol/L (21-31); CHLORIDE 94 mmol/L (97-110); CREATININE 1.83 mg/dl (0.44-1.00); GLUCOSE 93 mg/dl (70-220); POTASSIUM 3.7 mmol/L (3.5-5.1); SODIUM 135 mmol/L (135-144)
[2018-01-21 20:16] LABS: TROPONIN-I < 0.012 ng/ml (0.00-0.12)
[2018-01-21] MEDS: morphine 4 MG/ML VIAL IV (21:37)
[2018-01-22] MEDS: SOD CHLORIDE 0.9% 1,000 ML IV ×4 (00:30→21:07)
[2018-01-22] MEDS ORDERED: MAGNESIUM HYDROXIDE 30ML CUP PO (01:30)
[2018-01-22] MEDS ORDERED: DOCUSATE SODIUM 100 MG CAP PO (01:30)
[2018-01-22] MEDS ORDERED: NACL 0.9% 3 ML SYG IV (01:30)
[2018-01-22] MEDS ORDERED: GLUCOSE GEL 15 GRAM TUBE BUCCAL (02:00)
[2018-01-22] MEDS: ONDANSETRON 4 MG INJ IV (02:00)
[2018-01-22] MEDS ORDERED: GLUCAGON 1 MG INJ IM (02:00)
[2018-01-22] MEDS: CEFTRIAXONE 1 GM/50 ML (PMX) 50 ML IVPB (02:00)
[2018-01-22] MEDS ORDERED: DEXTROSE 50% 50 ML SYRINGE IV (02:00)
[2018-01-22] MEDS ORDERED: GLUCOSE GEL 15 GRAM TUBE PO ×2 (02:00)
[2018-01-22] MEDS: CEFEPIME 1GM/50 ML (PMX) 50 ML IVPB (02:01)
[2018-01-22] MEDS: ACCU-CHEK XX ×3 (02:06→08:12)
[2018-01-22] MEDS: ZOLPIDEM 5 MG TAB PO (02:11)
[2018-01-22] MEDS: DEXTROSE 50% 50 ML SYRINGE IV (02:21)
[2018-01-22] MEDS: INSULIN ASPART [NOVOLOG] 3 ML PEN SC ×4 (08:00→21:00)
[2018-01-22] MEDS ORDERED: INSULIN GLARGINE [LANtus] 3 ML PEN SC ×2 (21:00)
[2018-01-22] MEDS: ATORVASTATIN 10 MG TAB PO (21:04)
[2018-01-22] MEDS: INSULIN GLARGINE [LANtus] 3 ML PEN SC (21:46)
[2018-01-22] MEDS: morphine 2 MG INJ IV (23:11)
[2018-01-23] MEDS: CEFTRIAXONE 1 GM/50 ML (PMX) 50 ML IVPB (01:44)
[2018-01-23] MEDS: SOD CHLORIDE 0.9% 1,000 ML IV ×3 (01:44→17:37)
[2018-01-23 06:42] LABS: ADD MAN DIFF? NO
[2018-01-23 06:45] LABS: BASOPHIL # 0.1 10^3/ul (0.0-0.1); BASOPHILS % 0.8 % (0.0-2.0); EOSINOPHILS # 0.2 10^3/ul (0.0-0.5); EOSINOPHILS % 2.8 % (0.0-7.0); HEMATOCRIT 32.5 % (37.0-47.0); HEMOGLOBIN 10.4 g/dl (12.0-16.0); LYMPHOCYTES % 24.7 % (15.0-51.0); MEAN CORPUSCULAR HEMOGLOBIN 27.2 pg (29.0-33.0); MEAN CORPUSCULAR VOLUME 85.1 fl (82.0-101.0); MEAN PLATELET VOLUME 9.3 fl (7.4-10.4); MONOCYTE # 0.7 10^3/ul (0.3-0.9); NEUTROPHILS % 62.4 % (39.0-77.0); PLATELET COUNT 384 10^3/UL (140-415); RED BLOOD COUNT 3.82 10^6/ul (4.20-5.40); RED CELL DISTRIBUTION WIDTH 15.2 % (11.5-14.5)
[2018-01-23 06:45] LABS: WHITE BLOOD COUNT 7.9 10^3/ul (4.8-10.8)
[2018-01-23 06:57] LABS: HEMOGLOBIN A1C 7.7 % (0-5.9)
[2018-01-23 07:11] LABS: ANION GAP 8 (8-16); BLOOD UREA NITROGEN 12 mg/dl (7-20); CARBON DIOXIDE 28 mmol/L (21-31); CHLORIDE 111 mmol/L (97-110); GLUCOSE 93 mg/dl (70-220); MAGNESIUM 1.6 mg/dl (1.7-2.5); PHOSPHORUS 4.3 mg/dl (2.5-4.9); SODIUM 144 mmol/L (135-144)
[2018-01-23 07:14] LABS: POTASSIUM 2.9 mmol/L (3.5-5.1)
[2018-01-23] MEDS: INSULIN ASPART [NOVOLOG] 3 ML PEN SC ×4 (07:55→21:14)
[2018-01-23] MEDS: MAGNESIUM SULFATE 2 GM/50 ML 50 ML IVPB (08:13)
[2018-01-23] MEDS: IOHEXOL 300MG/ML 150 ML BTL (09:04)
[2018-01-23] MEDS: IODIXANOL LOCM 100 ML BTL (09:24)
[2018-01-23] MEDS: SOD CHLORIDE 0.9% 100 ML (09:24)
[2018-01-23] MEDS: POTASSIUM CHLORIDE (SR) 20 MEQ TAB PO (09:53)
[2018-01-23] MEDS: POTASSIUM CHLORIDE 100 ML IVPB ×2 (09:59→11:08)
[2018-01-23] MEDS: LEVOFLOXACIN 500MG/D5W (PMX) 100 ML IVPB (20:44)
[2018-01-23] MEDS: HYDROCODONE/APAP (5/325) TAB PO (20:46)
[2018-01-23] MEDS: ATORVASTATIN 10 MG TAB PO (20:47)
[2018-01-23] MEDS: INSULIN GLARGINE [LANtus] 3 ML PEN SC (21:15)
[2018-01-23] MEDS: metroNIDAZOLE 500 MG/NS (PMX) 100 ML IVPB (21:46)
[2018-01-24] MEDS: ACCU-CHEK XX (01:24)
[2018-01-24] MEDS: DIPHENHYDRAMINE 50 MG CAP PO (01:39)
[2018-01-24] MEDS: SOD CHLORIDE 0.9% 1,000 ML IV ×4 (03:13→17:36)
[2018-01-24] MEDS: metroNIDAZOLE 500 MG/NS (PMX) 100 ML IVPB ×3 (05:24→22:58)
[2018-01-24 06:44] LABS: ADD MAN DIFF? NO
[2018-01-24 06:53] LABS: BASOPHILS % 0.6 % (0.0-2.0); EOSINOPHILS # 0.3 10^3/ul (0.0-0.5); EOSINOPHILS % 4.1 % (0.0-7.0); HEMATOCRIT 36.4 % (37.0-47.0); HEMOGLOBIN 11.4 g/dl (12.0-16.0); LYMPHOCYTES # 2.2 10^3/ul (0.8-2.9); LYMPHOCYTES % 31.3 % (15.0-51.0); MEAN CORPUSCULAR HEMOGLOBIN 27.1 pg (29.0-33.0); MEAN CORPUSCULAR HGB CONC 31.3 g/dl (32.0-37.0); MEAN CORPUSCULAR VOLUME 86.7 fl (82.0-101.0); MEAN PLATELET VOLUME 9.4 fl (7.4-10.4); MONOCYTE # 0.8 10^3/ul (0.3-0.9); MONOCYTES % 10.7 % (0.0-11.0); NEUTROPHIL # 3.8 10^3/ul (1.6-7.5); NEUTROPHILS % 52.9 % (39.0-77.0); PLATELET COUNT 474 10^3/UL (140-415); RED CELL DISTRIBUTION WIDTH 15.3 % (11.5-14.5)
[2018-01-24 06:53] LABS: WHITE BLOOD COUNT 7.1 10^3/ul (4.8-10.8)
[2018-01-24 07:17] LABS: ANION GAP 11 (8-16); BLOOD UREA NITROGEN 7 mg/dl (7-20); CALCIUM 9.5 mg/dl (8.4-10.2); CARBON DIOXIDE 28 mmol/L (21-31); CHLORIDE 110 mmol/L (97-110); CREATININE 0.87 mg/dl (0.44-1.00); GLUCOSE 92 mg/dl (70-220); MAGNESIUM 1.9 mg/dl (1.7-2.5); PHOSPHORUS 3.6 mg/dl (2.5-4.9); POTASSIUM 3.9 mmol/L (3.5-5.1); SODIUM 145 mmol/L (135-144)
[2018-01-24] MEDS: INSULIN ASPART [NOVOLOG] 3 ML PEN SC ×4 (07:55→20:40)
[2018-01-24] MEDS: LORAZEPAM 2 MG INJ IV (12:46)
[2018-01-24] MEDS: ATORVASTATIN 10 MG TAB PO (20:36)
[2018-01-24] MEDS: INSULIN GLARGINE [LANtus] 3 ML PEN SC (20:43)
[2018-01-24] MEDS: LEVOFLOXACIN 750MG/D5W (PMX) 150 ML IVPB (21:38)
[2018-01-25] MEDS: ACCU-CHEK XX (01:48)
[2018-01-25] MEDS: ONDANSETRON 4 MG INJ IV ×2 (03:02→17:37)
[2018-01-25 05:49] LABS: ADD MAN DIFF? NO
[2018-01-25 05:56] LABS: BASOPHIL # 0.1 10^3/ul (0.0-0.1); BASOPHILS % 0.7 % (0.0-2.0); EOSINOPHILS # 0.2 10^3/ul (0.0-0.5); EOSINOPHILS % 3.1 % (0.0-7.0); HEMATOCRIT 31.5 % (37.0-47.0); LYMPHOCYTES # 1.5 10^3/ul (0.8-2.9); LYMPHOCYTES % 22.4 % (15.0-51.0); MEAN CORPUSCULAR HEMOGLOBIN 27.2 pg (29.0-33.0); MEAN CORPUSCULAR HGB CONC 31.7 g/dl (32.0-37.0); MEAN CORPUSCULAR VOLUME 85.8 fl (82.0-101.0); MEAN PLATELET VOLUME 9.4 fl (7.4-10.4); MONOCYTE # 0.8 10^3/ul (0.3-0.9); MONOCYTES % 11.6 % (0.0-11.0); NEUTROPHIL # 4.2 10^3/ul (1.6-7.5); NEUTROPHILS % 61.8 % (39.0-77.0); PLATELET COUNT 411 10^3/UL (140-415); RED BLOOD COUNT 3.67 10^6/ul (4.20-5.40); RED CELL DISTRIBUTION WIDTH 15.1 % (11.5-14.5)
[2018-01-25 05:56] LABS: WHITE BLOOD COUNT 6.8 10^3/ul (4.8-10.8)
[2018-01-25] MEDS: SOD CHLORIDE 0.9% 1,000 ML IV ×2 (06:02→19:31)
[2018-01-25] MEDS: metroNIDAZOLE 500 MG/NS (PMX) 100 ML IVPB ×3 (06:02→22:23)
[2018-01-25 06:34] LABS: ALANINE AMINOTRANSFERASE 17 IU/L (13-69); ALBUMIN 2.4 g/dl (3.3-4.9); ALBUMIN/GLOBULIN RATIO 0.82; ALKALINE PHOSPHATASE 75 IU/L (42-121); ANION GAP 13 (8-16); ASPARTATE AMINO TRANSFERASE 20 IU/L (15-46); BILIRUBIN,INDIRECT 0.1 mg/dl (0-1.1); BILIRUBIN,TOTAL 0.1 mg/dl (0.2-1.3); BLOOD UREA NITROGEN 3 mg/dl (7-20); CALCIUM 8.8 mg/dl (8.4-10.2); CARBON DIOXIDE 24 mmol/L (21-31); CHLORIDE 110 mmol/L (97-110); CREATININE 0.78 mg/dl (0.44-1.00); GLUCOSE 138 mg/dl (70-220); POTASSIUM 3.1 mmol/L (3.5-5.1); SODIUM 144 mmol/L (135-144); TOTAL PROTEIN 5.3 g/dl (6.1-8.1)
[2018-01-25] MEDS: INSULIN ASPART [NOVOLOG] 3 ML PEN SC ×4 (08:15→20:28)
[2018-01-25] MEDS: POTASSIUM CHLORIDE (SR) 20 MEQ TAB PO ×2 (10:26→12:39)
[2018-01-25] MEDS: morphine 2 MG INJ IV (14:17)
[2018-01-25] MEDS: LACTOBACILLUS RHAMNOSUS CAP PO (17:37)
[2018-01-25] MEDS: LEVOFLOXACIN 750MG/D5W (PMX) 150 ML IVPB (20:16)
[2018-01-25] MEDS: INSULIN GLARGINE [LANtus] 3 ML PEN SC (20:24)
[2018-01-25] MEDS: ATORVASTATIN 10 MG TAB PO (20:28)
[2018-01-25] MEDS: ZOLPIDEM 5 MG TAB PO (22:23)
[2018-01-26] MEDS: ACCU-CHEK XX (01:05)
[2018-01-26] MEDS: SOD CHLORIDE 0.9% 1,000 ML IV ×4 (05:13→23:42)
[2018-01-26] MEDS: metroNIDAZOLE 500 MG/NS (PMX) 100 ML IVPB ×3 (05:46→22:36)
[2018-01-26 07:08] LABS: ALBUMIN 2.2 g/dl (3.3-4.9); ANION GAP 11 (8-16); CALCIUM 8.8 mg/dl (8.4-10.2); CARBON DIOXIDE 25 mmol/L (21-31); CHLORIDE 115 mmol/L (97-110); CREATININE 0.71 mg/dl (0.44-1.00); GLUCOSE 82 mg/dl (70-220); MAGNESIUM 1.2 mg/dl (1.7-2.5); PHOSPHORUS 4.1 mg/dl (2.5-4.9); POTASSIUM 3.5 mmol/L (3.5-5.1); SODIUM 147 mmol/L (135-144)
[2018-01-26 07:13] LABS: BLOOD UREA NITROGEN < 2 mg/dl (7-20)
[2018-01-26] MEDS: INSULIN ASPART [NOVOLOG] 3 ML PEN SC ×4 (08:15→21:00)
[2018-01-26] MEDS: LACTOBACILLUS RHAMNOSUS CAP PO ×3 (08:37→18:53)
[2018-01-26] MEDS: ONDANSETRON 4 MG INJ IV (08:37)
[2018-01-26] MEDS: METOCLOPRAMIDE 10 MG INJ IV ×2 (17:35→23:47)
[2018-01-26] MEDS: INSULIN GLARGINE [LANtus] 3 ML PEN SC ×2 (21:00→23:58)
[2018-01-26] MEDS: ATORVASTATIN 10 MG TAB PO (21:01)
[2018-01-26] MEDS: LEVOFLOXACIN 750MG/D5W (PMX) 150 ML IVPB (21:01)
[2018-01-26] MEDS: ZOLPIDEM 5 MG TAB PO (22:36)
[2018-01-26] MEDS: POTASSIUM CHLORIDE (SR) 20 MEQ TAB PO (23:41)
[2018-01-26] MEDS: MAGNESIUM SULFATE 3 GM in DEXTROSE 5% 100 ML IVPB (23:41)
[2018-01-27] MEDS: SOD CHLORIDE 0.9% 1,000 ML IV ×3 (01:13→21:27)
[2018-01-27] MEDS: ACCU-CHEK XX (02:00)
[2018-01-27] MEDS: METOCLOPRAMIDE 10 MG INJ IV ×4 (05:23→23:30)
[2018-01-27] MEDS: metroNIDAZOLE 500 MG/NS (PMX) 100 ML IVPB ×3 (05:23→23:30)
[2018-01-27 07:00] LABS: ALBUMIN 2.5 g/dl (3.3-4.9); ANION GAP 10 (8-16); CALCIUM 8.9 mg/dl (8.4-10.2); CARBON DIOXIDE 23 mmol/L (21-31); CHLORIDE 113 mmol/L (97-110); GLUCOSE 100 mg/dl (70-220); MAGNESIUM 2.4 mg/dl (1.7-2.5); PHOSPHORUS 4.2 mg/dl (2.5-4.9); POTASSIUM 3.4 mmol/L (3.5-5.1); SODIUM 143 mmol/L (135-144)
[2018-01-27 07:05] LABS: BLOOD UREA NITROGEN < 2 mg/dl (7-20)
[2018-01-27] MEDS: INSULIN ASPART [NOVOLOG] 3 ML PEN SC ×4 (08:15→21:00)
[2018-01-27] MEDS: SOD CHLORIDE 0.9% 100 ML (09:03)
[2018-01-27] MEDS: IOHEXOL 300MG/ML 150 ML BTL (09:04)
[2018-01-27] MEDS: LACTOBACILLUS RHAMNOSUS CAP PO ×3 (09:28→17:21)
[2018-01-27] MEDS: POTASSIUM CHLORIDE (SR) 20 MEQ TAB PO (09:29)
[2018-01-27] MEDS: LEVOFLOXACIN 750MG/D5W (PMX) 150 ML IVPB (21:27)
[2018-01-27] MEDS: ATORVASTATIN 10 MG TAB PO (21:28)
[2018-01-27] MEDS: ZOLPIDEM 5 MG TAB PO (21:28)
[2018-01-27] MEDS: morphine 2 MG INJ IV (21:28)
[2018-01-27] MEDS: INSULIN GLARGINE [LANtus] 3 ML PEN SC (21:37)
[2018-01-28] MEDS: ACCU-CHEK XX (01:12)
[2018-01-28] MEDS: metroNIDAZOLE 500 MG/NS (PMX) 100 ML IVPB ×3 (05:38→22:59)
[2018-01-28] MEDS: METOCLOPRAMIDE 10 MG INJ IV ×4 (05:38→23:01)
[2018-01-28 06:52] LABS: ALBUMIN 2.5 g/dl (3.3-4.9); ANION GAP 12 (8-16); CALCIUM 8.7 mg/dl (8.4-10.2); CARBON DIOXIDE 23 mmol/L (21-31); CHLORIDE 112 mmol/L (97-110); CREATININE 0.62 mg/dl (0.44-1.00); GLUCOSE 105 mg/dl (70-220); MAGNESIUM 1.4 mg/dl (1.7-2.5); POTASSIUM 3.1 mmol/L (3.5-5.1); SODIUM 144 mmol/L (135-144)
[2018-01-28 06:54] LABS: BLOOD UREA NITROGEN < 2 mg/dl (7-20)
[2018-01-28] MEDS: SOD CHLORIDE 0.9% 1,000 ML IV ×2 (07:13→13:59)
[2018-01-28] MEDS: INSULIN ASPART [NOVOLOG] 3 ML PEN SC ×4 (08:15→21:19)
[2018-01-28] MEDS: LACTOBACILLUS RHAMNOSUS CAP PO ×3 (08:17→17:30)
[2018-01-28] MEDS: POTASSIUM CHLORIDE (SR) 10 MEQ TAB PO (16:23)
[2018-01-28] MEDS: HYDROCODONE/APAP (5/325) TAB PO (16:23)
[2018-01-28] MEDS: MAGNESIUM SULFATE 3 GM in DEXTROSE 5% 100 ML IVPB (17:23)
[2018-01-28] MEDS: LEVOFLOXACIN 750MG/D5W (PMX) 150 ML IVPB (21:06)
[2018-01-28] MEDS: ATORVASTATIN 10 MG TAB PO (21:06)
[2018-01-28] MEDS: INSULIN GLARGINE [LANtus] 3 ML PEN SC (21:13)
[2018-01-28] MEDS: ZOLPIDEM 5 MG TAB PO (22:06)
[2018-01-29] MEDS: ACCU-CHEK XX (02:00)
[2018-01-29] MEDS: SOD CHLORIDE 0.9% 1,000 ML IV ×3 (03:13→23:13)
[2018-01-29] MEDS: METOCLOPRAMIDE 10 MG INJ IV ×4 (05:53→23:10)
[2018-01-29] MEDS: metroNIDAZOLE 500 MG/NS (PMX) 100 ML IVPB ×3 (05:54→22:07)
[2018-01-29 06:02] LABS: ADD MAN DIFF? NO
[2018-01-29 06:08] LABS: WHITE BLOOD COUNT 8.1 10^3/ul (4.8-10.8)
[2018-01-29 06:08] LABS: BASOPHIL # 0.1 10^3/ul (0.0-0.1); BASOPHILS % 0.7 % (0.0-2.0); EOSINOPHILS # 0.3 10^3/ul (0.0-0.5); EOSINOPHILS % 3.1 % (0.0-7.0); HEMOGLOBIN 10.1 g/dl (12.0-16.0); LYMPHOCYTES # 2.1 10^3/ul (0.8-2.9); LYMPHOCYTES % 26.3 % (15.0-51.0); MEAN CORPUSCULAR HEMOGLOBIN 27.4 pg (29.0-33.0); MEAN CORPUSCULAR HGB CONC 31.6 g/dl (32.0-37.0); MEAN CORPUSCULAR VOLUME 86.7 fl (82.0-101.0); MEAN PLATELET VOLUME 9.2 fl (7.4-10.4); MONOCYTE # 0.8 10^3/ul (0.3-0.9); MONOCYTES % 9.5 % (0.0-11.0); NEUTROPHIL # 4.9 10^3/ul (1.6-7.5); NEUTROPHILS % 59.9 % (39.0-77.0); PLATELET COUNT 385 10^3/UL (140-415); RED BLOOD COUNT 3.69 10^6/ul (4.20-5.40); RED CELL DISTRIBUTION WIDTH 15.7 % (11.5-14.5)
[2018-01-29 06:26] LABS: ANION GAP 12 (8-16); CALCIUM 8.7 mg/dl (8.4-10.2); CARBON DIOXIDE 23 mmol/L (21-31); CHLORIDE 115 mmol/L (97-110); CREATININE 0.55 mg/dl (0.44-1.00); GLUCOSE 98 mg/dl (70-220); POTASSIUM 3.1 mmol/L (3.5-5.1); SODIUM 147 mmol/L (135-144)
[2018-01-29 06:27] LABS: MAGNESIUM 1.7 mg/dl (1.7-2.5)
[2018-01-29 06:27] LABS: PHOSPHORUS 4.4 mg/dl (2.5-4.9)
[2018-01-29 06:35] LABS: BLOOD UREA NITROGEN < 2 mg/dl (7-20)
[2018-01-29] MEDS: INSULIN ASPART [NOVOLOG] 3 ML PEN SC ×4 (08:01→21:00)
[2018-01-29] MEDS: LACTOBACILLUS RHAMNOSUS CAP PO ×3 (08:40→18:06)
[2018-01-29] MEDS: POTASSIUM CHLORIDE (SR) 20 MEQ TAB PO (12:03)
[2018-01-29] MEDS: MAGNESIUM SULFATE 2 GM/50 ML 50 ML IVPB (12:53)
[2018-01-29] MEDS: PEG/ELECTROLYTES 4L BTL PO (15:57)
[2018-01-29] MEDS: INSULIN GLARGINE [LANtus] 3 ML PEN SC ×2 (21:00→22:12)
[2018-01-29] MEDS: LEVOFLOXACIN 750MG/D5W (PMX) 150 ML IVPB ×2 (21:35→23:10)
[2018-01-29] MEDS: ATORVASTATIN 10 MG TAB PO (21:39)
[2018-01-29] MEDS: ZOLPIDEM 5 MG TAB PO (22:07)
[2018-01-30] MEDS: SODIUM CHLORIDE 0.9% 1L IRRIG IRR
[2018-01-30] MEDS: ACCU-CHEK XX (02:00)
[2018-01-30] MEDS: SOD CHLORIDE 0.9% 1,000 ML IV ×4 (04:01→20:33)
[2018-01-30] MEDS: metroNIDAZOLE 500 MG/NS (PMX) 100 ML IVPB ×3 (05:39→23:11)
[2018-01-30] MEDS: METOCLOPRAMIDE 10 MG INJ IV ×3 (05:39→18:00)
[2018-01-30 05:45] LABS: ADD MAN DIFF? NO
[2018-01-30 06:10] LABS: BASOPHIL # 0.1 10^3/ul (0.0-0.1); BASOPHILS % 0.9 % (0.0-2.0); EOSINOPHILS # 0.2 10^3/ul (0.0-0.5); EOSINOPHILS % 2.2 % (0.0-7.0); LYMPHOCYTES # 2.3 10^3/ul (0.8-2.9); LYMPHOCYTES % 29.4 % (15.0-51.0); MEAN CORPUSCULAR HEMOGLOBIN 27.4 pg (29.0-33.0); MEAN CORPUSCULAR HGB CONC 32.3 g/dl (32.0-37.0); MEAN CORPUSCULAR VOLUME 84.9 fl (82.0-101.0); MEAN PLATELET VOLUME 9.3 fl (7.4-10.4); MONOCYTE # 0.8 10^3/ul (0.3-0.9); MONOCYTES % 9.6 % (0.0-11.0); NEUTROPHIL # 4.5 10^3/ul (1.6-7.5); NEUTROPHILS % 57.4 % (39.0-77.0); PLATELET COUNT 378 10^3/UL (140-415); RED BLOOD COUNT 3.65 10^6/ul (4.20-5.40); RED CELL DISTRIBUTION WIDTH 15.7 % (11.5-14.5)
[2018-01-30 06:10] LABS: WHITE BLOOD COUNT 7.8 10^3/ul (4.8-10.8)
[2018-01-30 06:30] LABS: MAGNESIUM 1.6 mg/dl (1.7-2.5)
[2018-01-30 06:30] LABS: PHOSPHORUS 4.3 mg/dl (2.5-4.9)
[2018-01-30 06:37] LABS: ANION GAP 10 (8-16); CALCIUM 8.9 mg/dl (8.4-10.2); CARBON DIOXIDE 24 mmol/L (21-31); CHLORIDE 114 mmol/L (97-110); CREATININE 0.54 mg/dl (0.44-1.00); GLUCOSE 114 mg/dl (70-220); POTASSIUM 3.4 mmol/L (3.5-5.1); SODIUM 145 mmol/L (135-144)
[2018-01-30 06:38] LABS: BLOOD UREA NITROGEN < 2 mg/dl (7-20)
[2018-01-30] MEDS: LACTOBACILLUS RHAMNOSUS CAP PO ×3 (07:35→18:30)
[2018-01-30] MEDS: INSULIN ASPART [NOVOLOG] 3 ML PEN SC ×3 (08:15→18:00)
[2018-01-30 11:00] LABS: INR 1.26; PT RATIO 1.3
[2018-01-30 11:01] LABS: PARTIAL THROMBOPLASTIN TIME 47.9 Sec (25.0-35.0)
[2018-01-30] MEDS ORDERED: NEOSTIGMINE 3 MG/3 ML SYRINGE (11:38)
[2018-01-30] MEDS ORDERED: GLYCOPYRROLATE 0.4 MG INJ (11:38)
[2018-01-30] MEDS ORDERED: DEXAMETHASONE 4 MG/ML 1 ML INJ (11:38)
[2018-01-30] MEDS ORDERED: CEFAZOLIN 1 GM INJ (11:38)
[2018-01-30] MEDS ORDERED: ROCURONIUM 50 MG INJ (11:38)
[2018-01-30] MEDS ORDERED: PROPOFOL 20 ML (11:38)
[2018-01-30] MEDS ORDERED: FENTAnyl 50 MCG/ML VIAL ×2 (11:38→18:17)
[2018-01-30] MEDS ORDERED: MIDAZOLAM 1 MG/ML 2 ML INJ (11:38)
[2018-01-30] MEDS ORDERED: ONDANSETRON 4 MG INJ (11:38)
[2018-01-30] MEDS ORDERED: BUPIVACAINE 0.75%/DEXT (SPINAL) 2 ML INJ (11:39)
[2018-01-30] MEDS ORDERED: morphine SULFATE/PF (10 MG/10 ML) INJ (11:39)
[2018-01-30] MEDS ORDERED: PHENYLephrine (100 MCG/ML) 5ML SYG (12:30)
[2018-01-30] MEDS ORDERED: metroNIDAZOLE 500 MG/NS (PMX) 100 ML IVPB (12:59)
[2018-01-30] MEDS ORDERED: CIPROFLOXACIN 400MG/D5W 200 ML (12:59)
[2018-01-30 13:14] LABS: IMMEDIATE SPIN CROSSMATCH 1 1
[2018-01-30] MEDS ORDERED: HYDROmorphONE (0.2 MG/ML) 10ML SYG IV ×2 (17:30)
[2018-01-30] MEDS ORDERED: NALOXONE (0.4 MG/ML) INJ IV (17:30)
[2018-01-30] MEDS ORDERED: FENTAnyl 50 MCG/ML VIAL IV ×2 (17:30)
[2018-01-30] MEDS ORDERED: IPRATROPIUM (NEB) 0.5 MG/2.5 ML AMP HHN (17:30)
[2018-01-30] MEDS ORDERED: LABETALOL HCL 20MG INJ IV (17:30)
[2018-01-30] MEDS ORDERED: MIDAZOLAM 1 MG/ML 2 ML INJ IV (17:30)
[2018-01-30] MEDS ORDERED: TRIMETHOBENZAMIDE 100 MG/ML VIAL IM (17:30)
[2018-01-30] MEDS ORDERED: HYDROmorphONE 0.5 MG/0.5 ML SYG IV (17:30)
[2018-01-30] MEDS ORDERED: hydrALAzine 20 MG INJ IV (17:30)
[2018-01-30] MEDS ORDERED: DIPHENHYDRAMINE 50 MG INJ IV ×2 (17:30)
[2018-01-30] MEDS ORDERED: NALBUPHINE HCL (10 MG/1 ML) INJ IV (17:30)
[2018-01-30] MEDS ORDERED: MEPERIDINE 25 MG INJ IV (17:30)
[2018-01-30] MEDS ORDERED: ALBUTEROL 0.083% (NEB) 2.5 MG/3 ML AMP HHN (17:30)
[2018-01-30] MEDS ORDERED: EPHEDrine SULFATE 50 MG/5 ML SYG IV (17:30)
[2018-01-30] MEDS ORDERED: ONDANSETRON 4 MG INJ IV (17:30)
[2018-01-30] MEDS ORDERED: OXYCODONE/ACETAMINOPHEN (5/325) TAB PO ×2 (17:30)
[2018-01-30] MEDS ORDERED: SUGAMMADEX SODIUM 200 MG/2 ML VIAL IV (18:05)
[2018-01-30] MEDS: ONDANSETRON 4 MG INJ IV (18:44)
[2018-01-30] MEDS: FENTAnyl 50 MCG/ML VIAL IV (18:44)
[2018-01-30] MEDS: HYDROmorphONE (0.2 MG/ML) 10ML SYG IV (18:44)
[2018-01-30 19:48] LABS: ADD MAN DIFF? NO
[2018-01-30 19:50] LABS: WHITE BLOOD COUNT 14.7 10^3/ul (4.8-10.8)
[2018-01-30 19:50] LABS: BASOPHIL # 0.1 10^3/ul (0.0-0.1); BASOPHILS % 0.3 % (0.0-2.0); EOSINOPHILS % 0.1 % (0.0-7.0); HEMATOCRIT 30.7 % (37.0-47.0); HEMOGLOBIN 9.7 g/dl (12.0-16.0); LYMPHOCYTES # 1.3 10^3/ul (0.8-2.9); LYMPHOCYTES % 8.6 % (15.0-51.0); MEAN CORPUSCULAR HGB CONC 31.6 g/dl (32.0-37.0); MEAN CORPUSCULAR VOLUME 88.5 fl (82.0-101.0); MEAN PLATELET VOLUME 9.1 fl (7.4-10.4); MONOCYTE # 0.9 10^3/ul (0.3-0.9); MONOCYTES % 6.1 % (0.0-11.0); NEUTROPHIL # 12.4 10^3/ul (1.6-7.5); NEUTROPHILS % 84.4 % (39.0-77.0); PLATELET COUNT 376 10^3/UL (140-415); RED BLOOD COUNT 3.47 10^6/ul (4.20-5.40); RED CELL DISTRIBUTION WIDTH 15.8 % (11.5-14.5)
[2018-01-30 20:06] LABS: ANION GAP 13 (8-16); BLOOD UREA NITROGEN 2 mg/dl (7-20); CALCIUM 8.1 mg/dl (8.4-10.2); CARBON DIOXIDE 24 mmol/L (21-31); CHLORIDE 109 mmol/L (97-110); GLUCOSE 265 mg/dl (70-220); POTASSIUM 3.9 mmol/L (3.5-5.1); SODIUM 142 mmol/L (135-144)
[2018-01-30 20:24] LABS: INR 1.44; PROTIME 17.8 Sec (11.9-14.9); PT RATIO 1.4
[2018-01-30] MEDS: LEVOFLOXACIN 750MG/D5W (PMX) 150 ML IVPB (20:33)
[2018-01-30] MEDS: POTASSIUM CHLORIDE 100 ML IVPB (20:49)
[2018-01-30] MEDS: INSULIN GLARGINE [LANtus] 3 ML PEN SC ×2 (21:00→22:34)
[2018-01-30] MEDS: SOD CHLORIDE 0.9% 250 ML IV (22:00)
[2018-01-30] MEDS: MAGNESIUM SULFATE 2 GM/50 ML 50 ML IVPB (22:40)
[2018-01-30] MEDS: DEXTROSE 5%-0.45% NACL 1,000 ML IV (23:12)
[2018-01-31 00:55] LABS: ADD MAN DIFF? NO
[2018-01-31 00:56] LABS: WHITE BLOOD COUNT 11.8 10^3/ul (4.8-10.8)
[2018-01-31 00:56] LABS: ABNORMAL IP MESSAGE 1; BASOPHILS % 0.3 % (0.0-2.0); HEMATOCRIT 28.9 % (37.0-47.0); HEMOGLOBIN 9.2 g/dl (12.0-16.0); LYMPHOCYTES # 0.6 10^3/ul (0.8-2.9); LYMPHOCYTES % 4.8 % (15.0-51.0); MEAN CORPUSCULAR HEMOGLOBIN 27.7 pg (29.0-33.0); MEAN CORPUSCULAR HGB CONC 31.8 g/dl (32.0-37.0); MEAN PLATELET VOLUME 9.1 fl (7.4-10.4); MONOCYTE # 0.7 10^3/ul (0.3-0.9); MONOCYTES % 5.8 % (0.0-11.0); NEUTROPHIL # 10.5 10^3/ul (1.6-7.5); NEUTROPHILS % 88.6 % (39.0-77.0); PLATELET COUNT 290 10^3/UL (140-415); RED BLOOD COUNT 3.32 10^6/ul (4.20-5.40); RED CELL DISTRIBUTION WIDTH 15.9 % (11.5-14.5)
[2018-01-31] MEDS: ACCU-CHEK XX ×7 (01:00→21:00)
[2018-01-31 01:01] LABS: HOLD TRANSMISSIONS 1; POSITIVE DIFF @See below
[2018-01-31 01:17] LABS: ANION GAP 10 (8-16); CARBON DIOXIDE 23 mmol/L (21-31); CHLORIDE 114 mmol/L (97-110); GLUCOSE 310 mg/dl (70-220)
[2018-01-31 01:28] LABS: BLOOD UREA NITROGEN 3 mg/dl (7-20); CALCIUM 8.3 mg/dl (8.4-10.2); CREATININE 0.46 mg/dl (0.44-1.00); POTASSIUM 4.3 mmol/L (3.5-5.1); SODIUM 143 mmol/L (135-144)
[2018-01-31] MEDS: INSULIN ASPART [NOVOLOG] 3 ML PEN SC ×6 (01:28→21:00)
[2018-01-31] MEDS: metroNIDAZOLE 500 MG/NS (PMX) 100 ML IVPB ×2 (06:33→13:30)
[2018-01-31 06:48] LABS: ADD MAN DIFF? NO
[2018-01-31 06:52] LABS: WHITE BLOOD COUNT 13.7 10^3/ul (4.8-10.8)
[2018-01-31 06:52] LABS: BASOPHILS % 0.1 % (0.0-2.0); HEMATOCRIT 29.3 % (37.0-47.0); HEMOGLOBIN 9.2 g/dl (12.0-16.0); LYMPHOCYTES # 0.7 10^3/ul (0.8-2.9); LYMPHOCYTES % 5.4 % (15.0-51.0); MEAN CORPUSCULAR HEMOGLOBIN 27.5 pg (29.0-33.0); MEAN CORPUSCULAR HGB CONC 31.4 g/dl (32.0-37.0); MEAN CORPUSCULAR VOLUME 87.7 fl (82.0-101.0); MEAN PLATELET VOLUME 9.3 fl (7.4-10.4); MONOCYTES % 7.2 % (0.0-11.0); NEUTROPHIL # 11.9 10^3/ul (1.6-7.5); NEUTROPHILS % 86.7 % (39.0-77.0); PLATELET COUNT 301 10^3/UL (140-415); RED BLOOD COUNT 3.34 10^6/ul (4.20-5.40); RED CELL DISTRIBUTION WIDTH 15.8 % (11.5-14.5)
[2018-01-31 07:18] LABS: ANION GAP 12 (8-16); BLOOD UREA NITROGEN 3 mg/dl (7-20); CALCIUM 8.6 mg/dl (8.4-10.2); CARBON DIOXIDE 23 mmol/L (21-31); CHLORIDE 113 mmol/L (97-110); CREATININE 0.47 mg/dl (0.44-1.00); GLUCOSE 302 mg/dl (70-220); POTASSIUM 4.1 mmol/L (3.5-5.1); SODIUM 144 mmol/L (135-144)
[2018-01-31] MEDS: LACTOBACILLUS RHAMNOSUS CAP PO ×3 (08:01→17:02)
[2018-01-31] MEDS: HYDROmorphONE 0.5 MG/0.5 ML SYG IV ×5 (08:07→19:25)
[2018-01-31] MEDS ORDERED: INSULIN ASPART [NOVOLOG] 3 ML PEN SC (08:15)
[2018-01-31] MEDS: ONDANSETRON 4 MG INJ IV ×2 (09:10→17:36)
[2018-01-31] MEDS: INSULIN GLARGINE [LANtus] 3 ML PEN SC ×2 (10:27→21:11)
[2018-01-31 12:16] LABS: ADD MAN DIFF? NO
[2018-01-31 12:24] LABS: ABNORMAL IP MESSAGE 1; BASOPHILS % 0.2 % (0.0-2.0); HEMATOCRIT 27.5 % (37.0-47.0); HEMOGLOBIN 8.9 g/dl (12.0-16.0); LYMPHOCYTES # 1.4 10^3/ul (0.8-2.9); LYMPHOCYTES % 7.8 % (15.0-51.0); MEAN CORPUSCULAR HEMOGLOBIN 27.8 pg (29.0-33.0); MEAN CORPUSCULAR HGB CONC 32.4 g/dl (32.0-37.0); MEAN CORPUSCULAR VOLUME 85.9 fl (82.0-101.0); MEAN PLATELET VOLUME 9.6 fl (7.4-10.4); MONOCYTE # 1.6 10^3/ul (0.3-0.9); MONOCYTES % 9.4 % (0.0-11.0); NEUTROPHIL # 14.2 10^3/ul (1.6-7.5); NEUTROPHILS % 81.9 % (39.0-77.0); PLATELET COUNT 309 10^3/UL (140-415); RED CELL DISTRIBUTION WIDTH 15.8 % (11.5-14.5)
[2018-01-31 12:24] LABS: WHITE BLOOD COUNT 17.4 10^3/ul (4.8-10.8)
[2018-01-31 12:25] LABS: POSITIVE DIFF @See below
[2018-01-31 12:59] LABS: ANION GAP 11 (8-16); BLOOD UREA NITROGEN 4 mg/dl (7-20); CALCIUM 8.8 mg/dl (8.4-10.2); CARBON DIOXIDE 24 mmol/L (21-31); CHLORIDE 111 mmol/L (97-110); CREATININE 0.47 mg/dl (0.44-1.00); GLUCOSE 220 mg/dl (70-220); POTASSIUM 3.7 mmol/L (3.5-5.1); SODIUM 142 mmol/L (135-144)
[2018-01-31] MEDS: DEXTROSE 5%-0.45% NACL 1,000 ML IV (13:30)
[2018-01-31] MEDS ORDERED: HYDROmorphONE 0.5 MG/0.5 ML SYG IV (13:30)
[2018-01-31] MEDS: LEVOFLOXACIN 750MG/D5W (PMX) 150 ML IVPB (20:58)
[2018-02-01] MEDS: metroNIDAZOLE 500 MG/NS (PMX) 100 ML IVPB ×4 (00:11→22:26)
[2018-02-01] MEDS: HYDROmorphONE 0.5 MG/0.5 ML SYG IV (00:11)
[2018-02-01] MEDS: ONDANSETRON 4 MG INJ IV ×5 (00:11→23:07)
[2018-02-01] MEDS: DEXTROSE 5%-0.45% NACL 1,000 ML IV ×2 (00:40→12:31)
[2018-02-01] MEDS: INSULIN ASPART [NOVOLOG] 3 ML PEN SC ×6 (01:00→20:47)
[2018-02-01] MEDS: ACCU-CHEK XX ×7 (01:00→21:00)
[2018-02-01] MEDS: morphine 2 MG INJ IV ×6 (01:54→23:07)
[2018-02-01] MEDS: LACTOBACILLUS RHAMNOSUS CAP PO ×3 (07:23→17:55)
[2018-02-01 08:13] LABS: ADD MAN DIFF? NO
[2018-02-01 08:20] LABS: BASOPHIL # 0.1 10^3/ul (0.0-0.1); BASOPHILS % 0.3 % (0.0-2.0); EOSINOPHILS % 0.2 % (0.0-7.0); HEMATOCRIT 24.9 % (37.0-47.0); LYMPHOCYTES # 1.9 10^3/ul (0.8-2.9); LYMPHOCYTES % 11.9 % (15.0-51.0); MEAN CORPUSCULAR HEMOGLOBIN 27.4 pg (29.0-33.0); MEAN CORPUSCULAR HGB CONC 32.1 g/dl (32.0-37.0); MEAN CORPUSCULAR VOLUME 85.3 fl (82.0-101.0); MEAN PLATELET VOLUME 9.6 fl (7.4-10.4); MONOCYTE # 1.4 10^3/ul (0.3-0.9); NEUTROPHIL # 12.5 10^3/ul (1.6-7.5); NEUTROPHILS % 77.9 % (39.0-77.0); PLATELET COUNT 281 10^3/UL (140-415); RED BLOOD COUNT 2.92 10^6/ul (4.20-5.40)
[2018-02-01 09:59] LABS: ANION GAP 10 (8-16); BLOOD UREA NITROGEN 7 mg/dl (7-20); CALCIUM 8.4 mg/dl (8.4-10.2); CARBON DIOXIDE 25 mmol/L (21-31); CHLORIDE 112 mmol/L (97-110); CREATININE 0.51 mg/dl (0.44-1.00); GLUCOSE 74 mg/dl (70-220); MAGNESIUM 1.3 mg/dl (1.7-2.5); PHOSPHORUS 3.8 mg/dl (2.5-4.9); POTASSIUM 3.3 mmol/L (3.5-5.1); SODIUM 144 mmol/L (135-144)
[2018-02-01] MEDS: MAGNESIUM SULFATE 4 GM/100 ML 100 ML IVPB (11:59)
[2018-02-01] MEDS: POTASSIUM CHLORIDE 100 ML IVPB ×2 (16:38→19:11)
[2018-02-01] MEDS: LEVOFLOXACIN 750MG/D5W (PMX) 150 ML IVPB (20:42)
[2018-02-01] MEDS: INSULIN GLARGINE [LANtus] 3 ML PEN SC (20:55)
[2018-02-02] MEDS: INSULIN ASPART [NOVOLOG] 3 ML PEN SC ×6 (01:00→20:27)
[2018-02-02] MEDS: ACCU-CHEK XX ×7 (01:07→21:14)
[2018-02-02] MEDS: morphine 2 MG INJ IV ×5 (02:55→21:45)
[2018-02-02] MEDS: ONDANSETRON 4 MG INJ IV ×3 (02:55→11:08)
[2018-02-02] MEDS: metroNIDAZOLE 500 MG/NS (PMX) 100 ML IVPB ×3 (05:31→22:46)
[2018-02-02] MEDS: DEXTROSE 5%-0.45% NACL 1,000 ML IV ×2 (05:31→16:40)
[2018-02-02] MEDS: LACTOBACILLUS RHAMNOSUS CAP PO ×3 (08:27→18:25)
[2018-02-02 08:43] LABS: ADD MAN DIFF? NO
[2018-02-02 08:47] LABS: WHITE BLOOD COUNT 14.3 10^3/ul (4.8-10.8)
[2018-02-02 08:47] LABS: BASOPHIL # 0.1 10^3/ul (0.0-0.1); BASOPHILS % 0.4 % (0.0-2.0); EOSINOPHILS # 0.1 10^3/ul (0.0-0.5); EOSINOPHILS % 0.7 % (0.0-7.0); HEMATOCRIT 25.3 % (37.0-47.0); HEMOGLOBIN 8.2 g/dl (12.0-16.0); LYMPHOCYTES # 1.8 10^3/ul (0.8-2.9); LYMPHOCYTES % 12.6 % (15.0-51.0); MEAN CORPUSCULAR HEMOGLOBIN 27.4 pg (29.0-33.0); MEAN CORPUSCULAR HGB CONC 32.4 g/dl (32.0-37.0); MEAN CORPUSCULAR VOLUME 84.6 fl (82.0-101.0); MEAN PLATELET VOLUME 9.4 fl (7.4-10.4); MONOCYTE # 1.1 10^3/ul (0.3-0.9); MONOCYTES % 7.9 % (0.0-11.0); NEUTROPHIL # 11.1 10^3/ul (1.6-7.5); NEUTROPHILS % 77.8 % (39.0-77.0); PLATELET COUNT 308 10^3/UL (140-415); RED BLOOD COUNT 2.99 10^6/ul (4.20-5.40); RED CELL DISTRIBUTION WIDTH 15.9 % (11.5-14.5)
[2018-02-02 09:25] LABS: ANION GAP 9 (8-16); BLOOD UREA NITROGEN 5 mg/dl (7-20); CALCIUM 7.6 mg/dl (8.4-10.2); CARBON DIOXIDE 27 mmol/L (21-31); CHLORIDE 109 mmol/L (97-110); CREATININE 0.51 mg/dl (0.44-1.00); GLUCOSE 83 mg/dl (70-220); MAGNESIUM 1.8 mg/dl (1.7-2.5); PHOSPHORUS 3.5 mg/dl (2.5-4.9); POTASSIUM 3.2 mmol/L (3.5-5.1); SODIUM 142 mmol/L (135-144)
[2018-02-02] MEDS ORDERED: POTASSIUM CHLORIDE (SR) 20 MEQ TAB PO (10:08)
[2018-02-02] MEDS: POTASSIUM CHLORIDE 100 ML IVPB ×4 (12:03→23:56)
[2018-02-02] MEDS: METOCLOPRAMIDE 10 MG INJ IV ×2 (14:06→21:45)
[2018-02-02] MEDS: MAGNESIUM SULFATE 2 GM/50 ML 50 ML IVPB (18:26)
[2018-02-02] MEDS: LEVOFLOXACIN 750MG/D5W (PMX) 150 ML IVPB (20:25)
[2018-02-02] MEDS: INSULIN GLARGINE [LANtus] 3 ML PEN SC (20:26)
[2018-02-03] MEDS: INSULIN ASPART [NOVOLOG] 3 ML PEN SC ×6 (00:54→21:00)
[2018-02-03] MEDS: ACCU-CHEK XX ×7 (01:02→21:00)
[2018-02-03] MEDS: METOCLOPRAMIDE 10 MG INJ IV ×2 (03:23→10:02)
[2018-02-03] MEDS: morphine 2 MG INJ IV ×4 (03:23→22:30)
[2018-02-03] MEDS: metroNIDAZOLE 500 MG/NS (PMX) 100 ML IVPB ×3 (06:08→21:25)
[2018-02-03] MEDS: DEXTROSE 5%-0.45% NACL 1,000 ML IV ×2 (06:08→19:20)
[2018-02-03] MEDS: LACTOBACILLUS RHAMNOSUS CAP PO ×3 (07:42→17:02)
[2018-02-03 07:54] LABS: ADD MAN DIFF? NO
[2018-02-03 07:58] LABS: BASOPHIL # 0.1 10^3/ul (0.0-0.1); BASOPHILS % 0.4 % (0.0-2.0); EOSINOPHILS # 0.2 10^3/ul (0.0-0.5); EOSINOPHILS % 1.4 % (0.0-7.0); HEMATOCRIT 28.7 % (37.0-47.0); HEMOGLOBIN 9.3 g/dl (12.0-16.0); LYMPHOCYTES % 15.5 % (15.0-51.0); MEAN CORPUSCULAR HEMOGLOBIN 27.4 pg (29.0-33.0); MEAN CORPUSCULAR HGB CONC 32.4 g/dl (32.0-37.0); MEAN CORPUSCULAR VOLUME 84.7 fl (82.0-101.0); MEAN PLATELET VOLUME 9.4 fl (7.4-10.4); MONOCYTES % 7.6 % (0.0-11.0); NEUTROPHIL # 9.6 10^3/ul (1.6-7.5); NEUTROPHILS % 74.4 % (39.0-77.0); PLATELET COUNT 390 10^3/UL (140-415); RED BLOOD COUNT 3.39 10^6/ul (4.20-5.40)
[2018-02-03 07:58] LABS: WHITE BLOOD COUNT 12.9 10^3/ul (4.8-10.8)
[2018-02-03 08:32] LABS: ANION GAP 9 (8-16); BLOOD UREA NITROGEN 2 mg/dl (7-20); CALCIUM 7.7 mg/dl (8.4-10.2); CARBON DIOXIDE 27 mmol/L (21-31); CHLORIDE 108 mmol/L (97-110); CREATININE 0.43 mg/dl (0.44-1.00); GLUCOSE 86 mg/dl (70-220); MAGNESIUM 1.9 mg/dl (1.7-2.5); POTASSIUM 3.6 mmol/L (3.5-5.1); SODIUM 140 mmol/L (135-144)
[2018-02-03 09:12] LABS: PHOSPHORUS 3.3 mg/dl (2.5-4.9)
[2018-02-03] MEDS: MAGNESIUM SULFATE 2 GM/50 ML 50 ML IVPB (11:07)
[2018-02-03] MEDS: PANTOPRAZOLE 40 MG INJ IV (11:22)
[2018-02-03] MEDS: POTASSIUM CHLORIDE 100 ML IVPB ×2 (13:36→16:58)
[2018-02-03] MEDS: DIGOXIN 500 MCG INJ IV (13:59)
[2018-02-03] MEDS: METOPROLOL 5 MG INJ IV ×3 (14:27→21:27)
[2018-02-03] MEDS: MAGNESIUM SULFATE 1 GM/D5W 100 ML IVPB (16:00)
[2018-02-03 19:52] LABS: TROPONIN-I < 0.012 ng/ml (0.00-0.12)
[2018-02-03] MEDS: LEVOFLOXACIN 750MG/D5W (PMX) 150 ML IVPB (21:25)
[2018-02-03] MEDS: INSULIN GLARGINE [LANtus] 3 ML PEN SC (22:25)
[2018-02-04] MEDS: INSULIN ASPART [NOVOLOG] 3 ML PEN SC ×6 (01:00→21:26)
[2018-02-04] MEDS: METOCLOPRAMIDE 10 MG INJ IV ×3 (01:02→19:25)
[2018-02-04] MEDS: METOPROLOL 5 MG INJ IV ×6 (01:05→21:16)
[2018-02-04] MEDS: ACCU-CHEK XX ×7 (01:09→21:21)
[2018-02-04 02:02] LABS: TROPONIN-I < 0.012 ng/ml (0.00-0.12)
[2018-02-04] MEDS: morphine 2 MG INJ IV ×4 (03:47→23:40)
[2018-02-04] MEDS: PANTOPRAZOLE 40 MG INJ IV (06:19)
[2018-02-04] MEDS: metroNIDAZOLE 500 MG/NS (PMX) 100 ML IVPB ×3 (06:20→21:14)
[2018-02-04 06:48] LABS: ADD MAN DIFF? NO
[2018-02-04 06:50] LABS: WHITE BLOOD COUNT 10.5 10^3/ul (4.8-10.8)
[2018-02-04 06:50] LABS: BASOPHIL # 0.1 10^3/ul (0.0-0.1); BASOPHILS % 0.5 % (0.0-2.0); EOSINOPHILS # 0.5 10^3/ul (0.0-0.5); EOSINOPHILS % 4.7 % (0.0-7.0); HEMATOCRIT 28.2 % (37.0-47.0); LYMPHOCYTES # 1.8 10^3/ul (0.8-2.9); LYMPHOCYTES % 16.8 % (15.0-51.0); MEAN CORPUSCULAR HGB CONC 31.9 g/dl (32.0-37.0); MEAN CORPUSCULAR VOLUME 84.7 fl (82.0-101.0); MEAN PLATELET VOLUME 9.1 fl (7.4-10.4); MONOCYTES % 9.8 % (0.0-11.0); NEUTROPHIL # 7.1 10^3/ul (1.6-7.5); NEUTROPHILS % 67.3 % (39.0-77.0); PLATELET COUNT 402 10^3/UL (140-415); RED BLOOD COUNT 3.33 10^6/ul (4.20-5.40)
[2018-02-04 07:20] LABS: TROPONIN-I < 0.012 ng/ml (0.00-0.12)
[2018-02-04 07:24] LABS: ANION GAP 10 (8-16); CALCIUM 7.4 mg/dl (8.4-10.2); CARBON DIOXIDE 24 mmol/L (21-31); CHLORIDE 108 mmol/L (97-110); CREATININE 0.41 mg/dl (0.44-1.00); GLUCOSE 88 mg/dl (70-220); MAGNESIUM 1.9 mg/dl (1.7-2.5); PHOSPHORUS 3.2 mg/dl (2.5-4.9); POTASSIUM 3.8 mmol/L (3.5-5.1); SODIUM 138 mmol/L (135-144)
[2018-02-04 07:48] LABS: BLOOD UREA NITROGEN < 2 mg/dl (7-20)
[2018-02-04] MEDS: LACTOBACILLUS RHAMNOSUS CAP PO ×3 (08:23→16:40)
[2018-02-04] MEDS: DEXTROSE 5%-0.45% NACL 1,000 ML IV ×2 (09:16→21:28)
[2018-02-04] MEDS: LEVOFLOXACIN 750MG/D5W (PMX) 150 ML IVPB (19:25)
[2018-02-04] MEDS: INSULIN GLARGINE [LANtus] 3 ML PEN SC (21:24)
[2018-02-05] MEDS: ACCU-CHEK XX ×7 (00:01→21:38)
[2018-02-05] MEDS: morphine 2 MG INJ IV ×2 (03:53→08:14)
[2018-02-05] MEDS: METOCLOPRAMIDE 10 MG INJ IV ×2 (03:54→09:29)
[2018-02-05] MEDS: METOPROLOL 5 MG INJ IV ×7 (04:21→21:14)
[2018-02-05] MEDS: INSULIN ASPART [NOVOLOG] 3 ML PEN SC ×6 (05:00→21:38)
[2018-02-05] MEDS: metroNIDAZOLE 500 MG/NS (PMX) 100 ML IVPB ×3 (06:06→21:14)
[2018-02-05] MEDS: PANTOPRAZOLE 40 MG INJ IV (06:06)
[2018-02-05] MEDS: DEXTROSE 5%-0.45% NACL 1,000 ML IV (06:16)
[2018-02-05 06:22] LABS: ADD MAN DIFF? NO
[2018-02-05 06:32] LABS: WHITE BLOOD COUNT 12.2 10^3/ul (4.8-10.8)
[2018-02-05 06:32] LABS: BASOPHILS % 0.3 % (0.0-2.0); EOSINOPHILS # 0.5 10^3/ul (0.0-0.5); EOSINOPHILS % 4.3 % (0.0-7.0); HEMOGLOBIN 8.8 g/dl (12.0-16.0); LYMPHOCYTES # 2.1 10^3/ul (0.8-2.9); LYMPHOCYTES % 17.5 % (15.0-51.0); MEAN CORPUSCULAR HEMOGLOBIN 26.7 pg (29.0-33.0); MEAN CORPUSCULAR HGB CONC 31.4 g/dl (32.0-37.0); MEAN CORPUSCULAR VOLUME 85.1 fl (82.0-101.0); MEAN PLATELET VOLUME 9.3 fl (7.4-10.4); MONOCYTE # 1.2 10^3/ul (0.3-0.9); MONOCYTES % 9.6 % (0.0-11.0); NEUTROPHIL # 8.2 10^3/ul (1.6-7.5); NEUTROPHILS % 66.8 % (39.0-77.0); PLATELET COUNT 467 10^3/UL (140-415); RED BLOOD COUNT 3.29 10^6/ul (4.20-5.40); RED CELL DISTRIBUTION WIDTH 15.9 % (11.5-14.5)
[2018-02-05 07:21] LABS: ANION GAP 5 (8-16); CALCIUM 7.6 mg/dl (8.4-10.2); CARBON DIOXIDE 29 mmol/L (21-31); CHLORIDE 106 mmol/L (97-110); CREATININE 0.49 mg/dl (0.44-1.00); GLUCOSE 98 mg/dl (70-220); MAGNESIUM 1.4 mg/dl (1.7-2.5); PHOSPHORUS 3.6 mg/dl (2.5-4.9); POTASSIUM 3.2 mmol/L (3.5-5.1); SODIUM 137 mmol/L (135-144)
[2018-02-05 07:27] LABS: BLOOD UREA NITROGEN < 2 mg/dl (7-20)
[2018-02-05] MEDS: LACTOBACILLUS RHAMNOSUS CAP PO ×3 (08:14→18:25)
[2018-02-05] MEDS ORDERED: POTASSIUM CHLORIDE 100 ML IVPB (09:00)
[2018-02-05] MEDS ORDERED: D5-NS + KCL 40 MEQ 1,000 ML IV (09:00)
[2018-02-05] MEDS: POTASSIUM CHLORIDE 100 ML IVPB ×2 (09:34→15:07)
[2018-02-05] MEDS: MAGNESIUM SULFATE 4 GM/100 ML 100 ML IVPB (09:38)
[2018-02-05] MEDS: KETOROLAC 15 MG INJ IV ×2 (14:00→18:25)
[2018-02-05] MEDS: D5NS IV ×2 (14:04→22:08)
[2018-02-05] MEDS: KCL IV ×2 (14:04→22:08)
[2018-02-05] MEDS: LEVOFLOXACIN 750MG/D5W (PMX) 150 ML IVPB (21:14)
[2018-02-05] MEDS: INSULIN GLARGINE [LANtus] 3 ML PEN SC (21:22)
[2018-02-06] MEDS: ACCU-CHEK XX ×7 (01:00→20:22)
[2018-02-06] MEDS: KETOROLAC 15 MG INJ IV ×4 (01:56→18:28)
[2018-02-06] MEDS: METOCLOPRAMIDE 10 MG INJ IV ×2 (01:56→19:20)
[2018-02-06] MEDS: METOPROLOL 5 MG INJ IV ×6 (02:00→20:22)
[2018-02-06] MEDS: INSULIN ASPART [NOVOLOG] 3 ML PEN SC ×7 (02:04→21:00)
[2018-02-06] MEDS: PANTOPRAZOLE 40 MG INJ IV (06:18)
[2018-02-06] MEDS: metroNIDAZOLE 500 MG/NS (PMX) 100 ML IVPB ×3 (06:23→21:35)
[2018-02-06 06:31] LABS: ADD MAN DIFF? NO
[2018-02-06 06:36] LABS: BASOPHILS % 0.4 % (0.0-2.0); EOSINOPHILS # 0.6 10^3/ul (0.0-0.5); EOSINOPHILS % 6.1 % (0.0-7.0); HEMATOCRIT 27.1 % (37.0-47.0); HEMOGLOBIN 8.7 g/dl (12.0-16.0); LYMPHOCYTES # 1.6 10^3/ul (0.8-2.9); LYMPHOCYTES % 15.8 % (15.0-51.0); MEAN CORPUSCULAR HEMOGLOBIN 27.3 pg (29.0-33.0); MEAN CORPUSCULAR HGB CONC 32.1 g/dl (32.0-37.0); MONOCYTE # 0.9 10^3/ul (0.3-0.9); MONOCYTES % 8.9 % (0.0-11.0); NEUTROPHILS % 67.1 % (39.0-77.0); PLATELET COUNT 467 10^3/UL (140-415); RED BLOOD COUNT 3.19 10^6/ul (4.20-5.40); RED CELL DISTRIBUTION WIDTH 15.9 % (11.5-14.5)
[2018-02-06 06:36] LABS: WHITE BLOOD COUNT 10.4 10^3/ul (4.8-10.8)
[2018-02-06 06:58] LABS: MAGNESIUM 1.9 mg/dl (1.7-2.5)
[2018-02-06 06:59] LABS: ALANINE AMINOTRANSFERASE 12 IU/L (13-69); ALBUMIN 2.1 g/dl (3.3-4.9); ALBUMIN/GLOBULIN RATIO 0.77; ALKALINE PHOSPHATASE 60 IU/L (42-121); ANION GAP 10 (8-16); ASPARTATE AMINO TRANSFERASE 10 IU/L (15-46); BILIRUBIN,INDIRECT 0.2 mg/dl (0-1.1); BILIRUBIN,TOTAL 0.2 mg/dl (0.2-1.3); CALCIUM 7.6 mg/dl (8.4-10.2); CARBON DIOXIDE 23 mmol/L (21-31); CHLORIDE 112 mmol/L (97-110); CREATININE 0.44 mg/dl (0.44-1.00); GLUCOSE 90 mg/dl (70-220); POTASSIUM 3.9 mmol/L (3.5-5.1); SODIUM 141 mmol/L (135-144); TOTAL PROTEIN 4.8 g/dl (6.1-8.1)
[2018-02-06 07:01] LABS: BLOOD UREA NITROGEN < 2 mg/dl (7-20)
[2018-02-06] MEDS: morphine 2 MG INJ IV ×3 (09:17→21:35)
[2018-02-06] MEDS: LACTOBACILLUS RHAMNOSUS CAP PO ×3 (09:17→17:40)
[2018-02-06] MEDS: D5NS IV (09:28)
[2018-02-06] MEDS: KCL IV (09:28)
[2018-02-06] MEDS: LEVOFLOXACIN 750MG/D5W (PMX) 150 ML IVPB (20:19)
[2018-02-06] MEDS: INSULIN GLARGINE [LANtus] 3 ML PEN SC (20:29)
[2018-02-07] MEDS ORDERED: DEXTROSE 50% 50 ML SYRINGE IV ×2 (01:00)
[2018-02-07] MEDS ORDERED: GLUCAGON 1 MG INJ IM (01:00)
[2018-02-07] MEDS ORDERED: GLUCOSE GEL 15 GRAM TUBE PO ×2 (01:00)
[2018-02-07] MEDS: METOPROLOL 5 MG INJ IV ×3 (01:00→08:48)
[2018-02-07] MEDS ORDERED: GLUCOSE GEL 15 GRAM TUBE BUCCAL (01:00)
[2018-02-07] MEDS: KETOROLAC 15 MG INJ IV ×4 (01:10→18:39)
[2018-02-07] MEDS: ZOLPIDEM 5 MG TAB PO ×2 (01:10→20:46)
[2018-02-07] MEDS: KCL IV ×3 (01:11→23:55)
[2018-02-07] MEDS: D5NS IV ×3 (01:11→23:55)
[2018-02-07] MEDS: ACCU-CHEK XX (01:19)
[2018-02-07] MEDS: metroNIDAZOLE 500 MG/NS (PMX) 100 ML IVPB ×2 (05:02→13:55)
[2018-02-07] MEDS: PANTOPRAZOLE 40 MG INJ IV (05:02)
[2018-02-07] MEDS: INSULIN ASPART [NOVOLOG] 3 ML PEN SC ×4 (07:55→21:00)
[2018-02-07] MEDS: LACTOBACILLUS RHAMNOSUS CAP PO ×3 (08:48→18:38)
[2018-02-07] MEDS: METOPROLOL 25 MG TAB PO ×2 (12:10→20:34)
[2018-02-07] MEDS: METOCLOPRAMIDE 10 MG INJ IV (14:00)
[2018-02-07] MEDS: INSULIN GLARGINE [LANtus] 3 ML PEN SC (20:43)
[2018-02-07] MEDS ORDERED: METOPROLOL 25 MG TAB GTB (21:00)
[2018-02-08] MEDS: KETOROLAC 15 MG INJ IV ×2 (00:11→08:34)
[2018-02-08] MEDS: morphine LIQ (10 MG/5 ML) CUP PO ×3 (05:08→18:03)
[2018-02-08] MEDS: D5NS IV ×2 (05:09→17:57)
[2018-02-08] MEDS: KCL IV ×2 (05:09→17:57)
[2018-02-08] MEDS: PANTOPRAZOLE 40 MG INJ IV (05:27)
[2018-02-08 07:11] LABS: ADD MAN DIFF? NO
[2018-02-08 07:14] LABS: WHITE BLOOD COUNT 8.8 10^3/ul (4.8-10.8)
[2018-02-08 07:14] LABS: BASOPHIL # 0.1 10^3/ul (0.0-0.1); BASOPHILS % 0.7 % (0.0-2.0); EOSINOPHILS # 0.6 10^3/ul (0.0-0.5); EOSINOPHILS % 6.8 % (0.0-7.0); HEMATOCRIT 28.7 % (37.0-47.0); HEMOGLOBIN 9.1 g/dl (12.0-16.0); LYMPHOCYTES % 22.3 % (15.0-51.0); MEAN CORPUSCULAR HEMOGLOBIN 27.1 pg (29.0-33.0); MEAN CORPUSCULAR HGB CONC 31.7 g/dl (32.0-37.0); MEAN CORPUSCULAR VOLUME 85.4 fl (82.0-101.0); MEAN PLATELET VOLUME 9.1 fl (7.4-10.4); NEUTROPHIL # 5.1 10^3/ul (1.6-7.5); NEUTROPHILS % 57.6 % (39.0-77.0); PLATELET COUNT 529 10^3/UL (140-415); RED BLOOD COUNT 3.36 10^6/ul (4.20-5.40); RED CELL DISTRIBUTION WIDTH 16.6 % (11.5-14.5)
[2018-02-08 07:38] LABS: ANION GAP 7 (8-16); CALCIUM 8.4 mg/dl (8.4-10.2); CARBON DIOXIDE 25 mmol/L (21-31); CHLORIDE 114 mmol/L (97-110); CREATININE 0.42 mg/dl (0.44-1.00); MAGNESIUM 1.4 mg/dl (1.7-2.5); PHOSPHORUS 4.2 mg/dl (2.5-4.9); SODIUM 142 mmol/L (135-144)
[2018-02-08 07:41] LABS: BLOOD UREA NITROGEN < 2 mg/dl (7-20); GLUCOSE 99 mg/dl (70-220)
[2018-02-08] MEDS: INSULIN ASPART [NOVOLOG] 3 ML PEN SC ×4 (07:55→22:46)
[2018-02-08] MEDS: LACTOBACILLUS RHAMNOSUS CAP PO ×3 (08:33→18:15)
[2018-02-08] MEDS: METOPROLOL 25 MG TAB PO ×2 (08:34→22:38)
[2018-02-08] MEDS: MAGNESIUM OXIDE 400 MG TAB PO (10:00)
[2018-02-08] MEDS ORDERED: IOHEXOL 14.3 MG(I)/ML (ADULT) BTL PO ×2 (10:30→17:00)
[2018-02-08] MEDS: IOHEXOL 14.3 MG(I)/ML (ADULT) BTL PO (13:00)
[2018-02-08] MEDS: METOCLOPRAMIDE 10 MG INJ IV ×2 (14:00→22:37)
[2018-02-08] MEDS: ONDANSETRON 4 MG INJ IV (18:15)
[2018-02-08] MEDS ORDERED: hydrALAzine 20 MG INJ IV (20:30)
[2018-02-08] MEDS ORDERED: SOD CHLORIDE 0.9% 100 ML (20:58)
[2018-02-08] MEDS ORDERED: IOHEXOL 300MG/ML 150 ML BTL (20:58)
[2018-02-08] MEDS ORDERED: METOPROLOL 5 MG INJ IV (21:00)
[2018-02-08] MEDS: ZOLPIDEM 5 MG TAB PO (22:38)
[2018-02-08] MEDS: INSULIN GLARGINE [LANtus] 3 ML PEN SC (22:42)
[2018-02-09] MEDS: morphine LIQ (10 MG/5 ML) CUP PO ×6 (00:23→20:50)
[2018-02-09] MEDS: ONDANSETRON 4 MG INJ IV (00:24)
[2018-02-09] MEDS: INSULIN ASPART [NOVOLOG] 3 ML PEN SC ×6 (01:50→20:39)
[2018-02-09] MEDS: ACCU-CHEK XX (02:00)
[2018-02-09] MEDS: KCL IV ×4 (05:21→19:08)
[2018-02-09] MEDS: PANTOPRAZOLE 40 MG INJ IV (05:21)
[2018-02-09] MEDS: METOCLOPRAMIDE 10 MG INJ IV ×3 (05:21→20:23)
[2018-02-09] MEDS: D5NS IV ×4 (05:21→19:08)
[2018-02-09 06:16] LABS: ADD MAN DIFF? NO
[2018-02-09 06:19] LABS: WHITE BLOOD COUNT 9.3 10^3/ul (4.8-10.8)
[2018-02-09 06:19] LABS: BASOPHIL # 0.1 10^3/ul (0.0-0.1); BASOPHILS % 0.8 % (0.0-2.0); EOSINOPHILS # 0.6 10^3/ul (0.0-0.5); EOSINOPHILS % 6.7 % (0.0-7.0); HEMATOCRIT 33.5 % (37.0-47.0); HEMOGLOBIN 10.4 g/dl (12.0-16.0); LYMPHOCYTES # 2.4 10^3/ul (0.8-2.9); LYMPHOCYTES % 25.5 % (15.0-51.0); MEAN CORPUSCULAR HEMOGLOBIN 26.9 pg (29.0-33.0); MEAN CORPUSCULAR VOLUME 86.6 fl (82.0-101.0); MEAN PLATELET VOLUME 9.1 fl (7.4-10.4); MONOCYTES % 10.9 % (0.0-11.0); NEUTROPHIL # 5.1 10^3/ul (1.6-7.5); NEUTROPHILS % 54.8 % (39.0-77.0); PLATELET COUNT 590 10^3/UL (140-415); RED BLOOD COUNT 3.87 10^6/ul (4.20-5.40); RED CELL DISTRIBUTION WIDTH 16.4 % (11.5-14.5)
[2018-02-09 06:53] LABS: ALBUMIN 2.5 g/dl (3.3-4.9); ANION GAP 9 (8-16); CALCIUM 8.7 mg/dl (8.4-10.2); CARBON DIOXIDE 26 mmol/L (21-31); CHLORIDE 110 mmol/L (97-110); CREATININE 0.45 mg/dl (0.44-1.00); GLUCOSE 108 mg/dl (70-220); MAGNESIUM 1.4 mg/dl (1.7-2.5); PHOSPHORUS 4.4 mg/dl (2.5-4.9); POTASSIUM 4.3 mmol/L (3.5-5.1); SODIUM 141 mmol/L (135-144)
[2018-02-09 06:54] LABS: BLOOD UREA NITROGEN < 2 mg/dl (7-20)
[2018-02-09] MEDS: LACTOBACILLUS RHAMNOSUS CAP PO ×3 (08:27→17:38)
[2018-02-09] MEDS: METOPROLOL 25 MG TAB PO ×2 (08:28→20:24)
[2018-02-09] MEDS: MAGNESIUM SULFATE 2 GM/50 ML 50 ML IVPB (10:03)
[2018-02-09] MEDS ORDERED: PIPER-TAZO 3.375 GM IV (PMX) 100 ML IVPB (14:00)
[2018-02-09] MEDS: INSULIN GLARGINE [LANtus] 3 ML PEN SC (20:43)
[2018-02-10] MEDS: KCL IV ×3 (00:03→08:55)
[2018-02-10] MEDS: ZOLPIDEM 5 MG TAB PO ×2 (00:03→21:40)
[2018-02-10] MEDS: D5NS IV ×3 (00:03→08:55)
[2018-02-10] MEDS: INSULIN ASPART [NOVOLOG] 3 ML PEN SC ×6 (01:00→20:55)
[2018-02-10] MEDS: ACCU-CHEK XX (01:08)
[2018-02-10] MEDS: METOCLOPRAMIDE 10 MG INJ IV ×4 (02:02→20:40)
[2018-02-10] MEDS: PANTOPRAZOLE 40 MG INJ IV (05:11)
[2018-02-10 05:47] LABS: ADD MAN DIFF? NO
[2018-02-10 05:51] LABS: BASOPHIL # 0.1 10^3/ul (0.0-0.1); BASOPHILS % 0.5 % (0.0-2.0); EOSINOPHILS # 0.7 10^3/ul (0.0-0.5); HEMATOCRIT 29.4 % (37.0-47.0); HEMOGLOBIN 9.4 g/dl (12.0-16.0); LYMPHOCYTES # 3.1 10^3/ul (0.8-2.9); LYMPHOCYTES % 29.3 % (15.0-51.0); MEAN CORPUSCULAR HEMOGLOBIN 27.4 pg (29.0-33.0); MEAN CORPUSCULAR VOLUME 85.7 fl (82.0-101.0); MEAN PLATELET VOLUME 8.8 fl (7.4-10.4); MONOCYTE # 1.3 10^3/ul (0.3-0.9); MONOCYTES % 12.1 % (0.0-11.0); NEUTROPHIL # 5.2 10^3/ul (1.6-7.5); NEUTROPHILS % 50.1 % (39.0-77.0); PLATELET COUNT 645 10^3/UL (140-415); RED BLOOD COUNT 3.43 10^6/ul (4.20-5.40); RED CELL DISTRIBUTION WIDTH 15.9 % (11.5-14.5)
[2018-02-10 05:51] LABS: WHITE BLOOD COUNT 10.4 10^3/ul (4.8-10.8)
[2018-02-10 07:39] LABS: ALBUMIN 2.2 g/dl (3.3-4.9); ANION GAP 8 (8-16); BLOOD UREA NITROGEN < 2 mg/dl (7-20); CALCIUM 8.6 mg/dl (8.4-10.2); CARBON DIOXIDE 26 mmol/L (21-31); CHLORIDE 109 mmol/L (97-110); CREATININE 0.47 mg/dl (0.44-1.00); GLUCOSE 81 mg/dl (70-220); MAGNESIUM 1.9 mg/dl (1.7-2.5); PHOSPHORUS 4.7 mg/dl (2.5-4.9); POTASSIUM 4.2 mmol/L (3.5-5.1); SODIUM 139 mmol/L (135-144)
[2018-02-10] MEDS: LACTOBACILLUS RHAMNOSUS CAP PO ×3 (08:48→17:29)
[2018-02-10] MEDS: METOPROLOL 25 MG TAB PO ×2 (08:51→20:45)
[2018-02-10] MEDS: BARIUM SULFATE 135 ML (E-Z HD) PO (09:38)
[2018-02-10] MEDS: morphine LIQ (10 MG/5 ML) CUP PO ×2 (12:11→20:40)
[2018-02-10] MEDS: INSULIN GLARGINE [LANtus] 3 ML PEN SC (20:54)
[2018-02-11] MEDS: D5NS IV ×2 (00:03→14:06)
[2018-02-11] MEDS: KCL IV ×2 (00:03→14:06)
[2018-02-11] MEDS: INSULIN ASPART [NOVOLOG] 3 ML PEN SC ×6 (01:00→20:38)
[2018-02-11] MEDS: ACCU-CHEK XX (01:28)
[2018-02-11] MEDS: METOCLOPRAMIDE 10 MG INJ IV ×4 (02:50→17:57)
[2018-02-11] MEDS: PANTOPRAZOLE 40 MG INJ IV (05:17)
[2018-02-11] MEDS: LACTOBACILLUS RHAMNOSUS CAP PO ×3 (08:32→17:59)
[2018-02-11] MEDS: METOPROLOL 25 MG TAB PO ×2 (08:36→20:33)
[2018-02-11] MEDS: morphine LIQ (10 MG/5 ML) CUP PO (17:46)
[2018-02-11] MEDS: PANTOPRAZOLE (EC) 40 MG TAB PO (17:57)
[2018-02-11] MEDS: SUCRALFATE (100 MG/ML) 10ML CUP GTB ×2 (17:57→20:31)
[2018-02-11] MEDS ORDERED: PANTOPRAZOLE 40 MG INJ IV (18:00)
[2018-02-11] MEDS ORDERED: METOCLOPRAMIDE 10 MG TAB PO (18:00)
[2018-02-11] MEDS: INSULIN GLARGINE [LANtus] 3 ML PEN SC (20:35)
[2018-02-11 20:59] LABS: ALANINE AMINOTRANSFERASE 19 IU/L (13-69); ALBUMIN 2.2 g/dl (3.3-4.9); ALBUMIN/GLOBULIN RATIO 0.73; ALKALINE PHOSPHATASE 63 IU/L (42-121); ANION GAP 7 (8-16); ASPARTATE AMINO TRANSFERASE 14 IU/L (15-46); BILIRUBIN,INDIRECT 0.3 mg/dl (0-1.1); BILIRUBIN,TOTAL 0.3 mg/dl (0.2-1.3); CALCIUM 8.6 mg/dl (8.4-10.2); CARBON DIOXIDE 26 mmol/L (21-31); CHLORIDE 109 mmol/L (97-110); CREATININE 0.46 mg/dl (0.44-1.00); GLUCOSE 114 mg/dl (70-220); MAGNESIUM 1.5 mg/dl (1.7-2.5); SODIUM 138 mmol/L (135-144); TOTAL PROTEIN 5.2 g/dl (6.1-8.1); TRIGLYCERIDES 99 mg/dl (0-149)
[2018-02-11 21:00] LABS: BLOOD UREA NITROGEN < 2 mg/dl (7-20)
[2018-02-11 21:29] LABS: PREALBUMIN 5.6 mg/dl (17.6-36.0)
[2018-02-11] MEDS: LIDOCAINE 1% (MPF) 5 ML VIAL SC (22:00)
[2018-02-11] MEDS: ZOLPIDEM 5 MG TAB PO (22:41)
[2018-02-11] MEDS: MAGNESIUM SULFATE 1 GM/D5W 100 ML IVPB (22:41)
[2018-02-12] MEDS: METOCLOPRAMIDE 10 MG INJ IV ×4 (00:45→17:50)
[2018-02-12] MEDS: INSULIN ASPART [NOVOLOG] 3 ML PEN SC ×6 (01:00→21:11)
[2018-02-12] MEDS: ACCU-CHEK XX ×6 (01:02→21:00)
[2018-02-12] MEDS ORDERED: TPN 1,000 ML IV (06:00)
[2018-02-12 06:20] LABS: ANION GAP 9 (8-16); CALCIUM 8.8 mg/dl (8.4-10.2); CARBON DIOXIDE 26 mmol/L (21-31); CHLORIDE 108 mmol/L (97-110); CREATININE 0.47 mg/dl (0.44-1.00); GLUCOSE 73 mg/dl (70-220); MAGNESIUM 1.8 mg/dl (1.7-2.5); PHOSPHORUS 4.6 mg/dl (2.5-4.9); POTASSIUM 3.7 mmol/L (3.5-5.1); SODIUM 139 mmol/L (135-144)
[2018-02-12 06:22] LABS: BLOOD UREA NITROGEN < 2 mg/dl (7-20)
[2018-02-12] MEDS ORDERED: D5-NS + KCL 40 MEQ 1,000 ML IV ×2 (06:30→07:30)
[2018-02-12] MEDS: POTASSIUM CHLORIDE 40 MEQ in DEXTROSE 5%-0.9% NACL 1,000 ML IV ×2 (10:00→16:26)
[2018-02-12] MEDS: SUCRALFATE (100 MG/ML) 10ML CUP GTB ×4 (10:59→21:00)
[2018-02-12] MEDS: LACTOBACILLUS RHAMNOSUS CAP PO ×3 (10:59→17:50)
[2018-02-12] MEDS: METOPROLOL 25 MG TAB PO ×2 (11:00→20:57)
[2018-02-12] MEDS: PANTOPRAZOLE (EC) 40 MG TAB PO ×2 (11:00→17:50)
[2018-02-12] MEDS: MAGNESIUM SULFATE 2 GM/50 ML 50 ML IVPB (11:09)
[2018-02-12] MEDS: SOD CHLORIDE 0.9% 100 ML (14:40)
[2018-02-12] MEDS: TPN 1,000 ML IV (20:55)
[2018-02-12] MEDS: ZOLPIDEM 5 MG TAB PO (20:56)
[2018-02-12] MEDS: LOPERAMIDE 2 MG CAP PO (20:56)
[2018-02-12] MEDS: INSULIN GLARGINE [LANtus] 3 ML PEN SC (21:10)
[2018-02-13] MEDS: ACCU-CHEK XX ×7 (01:00→21:36)
[2018-02-13] MEDS: INSULIN ASPART [NOVOLOG] 3 ML PEN SC ×6 (01:00→21:00)
[2018-02-13] MEDS: METOCLOPRAMIDE 10 MG INJ IV ×5 (01:23→23:45)
[2018-02-13] MEDS: KETOROLAC 30 MG INJ IV (02:10)
[2018-02-13] MEDS: PANTOPRAZOLE (EC) 40 MG TAB PO ×2 (05:41→17:45)
[2018-02-13 06:22] LABS: ANION GAP 8 (8-16); BLOOD UREA NITROGEN 4 mg/dl (7-20); CALCIUM 8.7 mg/dl (8.4-10.2); CARBON DIOXIDE 25 mmol/L (21-31); CHLORIDE 111 mmol/L (97-110); CREATININE 0.51 mg/dl (0.44-1.00); GLUCOSE 163 mg/dl (70-220); MAGNESIUM 1.9 mg/dl (1.7-2.5); PHOSPHORUS 4.3 mg/dl (2.5-4.9); POTASSIUM 3.9 mmol/L (3.5-5.1); SODIUM 140 mmol/L (135-144)
[2018-02-13] MEDS: LACTOBACILLUS RHAMNOSUS CAP PO ×3 (08:41→17:55)
[2018-02-13] MEDS: SUCRALFATE (100 MG/ML) 10ML CUP GTB ×4 (08:41→20:53)
[2018-02-13] MEDS: METOPROLOL 25 MG TAB PO ×2 (08:42→21:24)
[2018-02-13] MEDS: TPN 1,000 ML IV (12:48)
[2018-02-13] MEDS: INSULIN GLARGINE [LANtus] 3 ML PEN SC (21:01)
[2018-02-13] MEDS: ZOLPIDEM 5 MG TAB PO (22:02)
[2018-02-14] MEDS: TPN 1,000 ML IV ×2 (00:48→14:54)
[2018-02-14] MEDS: ACCU-CHEK XX ×6 (01:49→17:07)
[2018-02-14] MEDS: INSULIN ASPART [NOVOLOG] 3 ML PEN SC ×5 (01:59→17:42)
[2018-02-14] MEDS: PANTOPRAZOLE (EC) 40 MG TAB PO ×2 (05:22→17:04)
[2018-02-14] MEDS: METOCLOPRAMIDE 10 MG INJ IV ×3 (05:23→17:05)
[2018-02-14 06:27] LABS: ANION GAP 7 (8-16); BLOOD UREA NITROGEN 7 mg/dl (7-20); CALCIUM 8.9 mg/dl (8.4-10.2); CARBON DIOXIDE 27 mmol/L (21-31); CHLORIDE 108 mmol/L (97-110); CREATININE 0.47 mg/dl (0.44-1.00); GLUCOSE 164 mg/dl (70-220); MAGNESIUM 1.5 mg/dl (1.7-2.5); PHOSPHORUS 3.8 mg/dl (2.5-4.9); SODIUM 138 mmol/L (135-144)
[2018-02-14] MEDS: SUCRALFATE (100 MG/ML) 10ML CUP GTB ×3 (08:14→17:04)
[2018-02-14] MEDS: LACTOBACILLUS RHAMNOSUS CAP PO ×3 (08:14→17:20)
[2018-02-14] MEDS: METOPROLOL 25 MG TAB PO (08:15)
[2018-02-14] MEDS: MAGNESIUM SULFATE 3 GM in DEXTROSE 5% 100 ML IVPB (12:30)
[2018-02-14] MEDS: ACETAMINOPHEN 325 MG TAB PO (13:16)
[2018-02-14] MEDS: FAT EMULSION 20% 250 ML IV (16:00)
== END 2018-02-14 17:50 | DRG 330 ==
LOC: MS2 01-30 23:24 → TEL 01-31 02:27 → E/R 14:40 → TEL 01-22 00:38 → REC 01-30 23:49 → MS2 02-08 16:04
PROC: 0DB80ZZ Excision of Small Intestine, Open Approach (ICD-10-PCS; principal; 2018-01-30 11:30)
PROC: 0DNE0ZZ Release Large Intestine, Open Approach (ICD-10-PCS; 2018-01-30 11:30)
PROC: 0DTG0ZZ Resection of Left Large Intestine, Open Approach (ICD-10-PCS; 2018-01-30 11:30)
PROC: 0WUF07Z Supplement Abdominal Wall with Autologous Tissue Substitute, Open Approach (ICD-10-PCS; 2018-01-30 11:30)
PROC: 0DTJ0ZZ Resection of Appendix, Open Approach (ICD-10-PCS; 2018-01-30 11:30)
PROC: 30233N1 Transfusion of Nonautologous Red Blood Cells into Peripheral Vein, Percutaneous Approach (ICD-10-PCS; 2018-01-30 12:06)
DX: K57.32 Diverticulitis of large intestine without perforation or abscess without bleeding (principal); N39.0 Urinary tract infection, site not specified; E44.0 Moderate protein-calorie malnutrition; I47.1 Supraventricular tachycardia; K66.0 Peritoneal adhesions (postprocedural) (postinfection); E86.0 Dehydration; I95.1 Orthostatic hypotension; E11.9 Type 2 diabetes mellitus without complications; Z87.891 Personal history of nicotine dependence; R60.9 Edema, unspecified; Z79.4 Long term (current) use of insulin; K44.9 Diaphragmatic hernia without obstruction or gangrene; Z68.21 Body mass index [BMI] 21.0-21.9, adult; K31.84 Gastroparesis; I10 Essential (primary) hypertension; E87.6 Hypokalemia
CPT/HCPCS: 36415; 36430; 36569; 70450; 71045; 72125; 72170; 74018; 74177; 74240; 74250; 76937; 78264; 80048; 80053; 80069; 81001; 81003; 82962; 83036; 83735; 84100; 84134; 84478; 84484; 85025; 85610; 85730; 86850; 86900; 86901; 86920; 87045; 87075; 87081; 87086; 87177; 87205; 88304; 88307; 93005; 93306; 96374; 96375; 96376; 97110; 97116; 97161; 97164; 97530; 99285-25

== ENCOUNTER 2018-02-16 15:12 | Emergency (ER) | payer OTHER ==
[2018-02-16 15:52] LABS: ADD MAN DIFF? NO
[2018-02-16 15:59] LABS: WHITE BLOOD COUNT 21.1 10^3/ul (4.8-10.8)
[2018-02-16 15:59] LABS: ABNORMAL IP MESSAGE 1; BASOPHIL # 0.1 10^3/ul (0.0-0.1); BASOPHILS % 0.7 % (0.0-2.0); EOSINOPHILS # 0.4 10^3/ul (0.0-0.5); EOSINOPHILS % 1.8 % (0.0-7.0); HEMATOCRIT 28.3 % (37.0-47.0); HEMOGLOBIN 8.9 g/dl (12.0-16.0); LYMPHOCYTES # 4.5 10^3/ul (0.8-2.9); LYMPHOCYTES % 21.4 % (15.0-51.0); MEAN CORPUSCULAR HEMOGLOBIN 26.5 pg (29.0-33.0); MEAN CORPUSCULAR HGB CONC 31.4 g/dl (32.0-37.0); MEAN CORPUSCULAR VOLUME 84.2 fl (82.0-101.0); MEAN PLATELET VOLUME 9.5 fl (7.4-10.4); MONOCYTE # 1.9 10^3/ul (0.3-0.9); MONOCYTES % 8.8 % (0.0-11.0); NEUTROPHILS % 66.3 % (39.0-77.0); PLATELET COUNT 532 10^3/UL (140-415); RED BLOOD COUNT 3.36 10^6/ul (4.20-5.40); RED CELL DISTRIBUTION WIDTH 15.4 % (11.5-14.5)
[2018-02-16] MEDS ORDERED: ACETAMINOPHEN 325 MG TAB PO (16:00)
[2018-02-16] MEDS ORDERED: ONDANSETRON 4 MG INJ IV (16:00)
[2018-02-16 16:01] LABS: POSITIVE DIFF @See below
[2018-02-16 16:14] LABS: INR 1.08; PROTIME 14.1 Sec (11.9-14.9); PT RATIO 1.1
[2018-02-16 16:15] LABS: PARTIAL THROMBOPLASTIN TIME 48.5 Sec (25.0-35.0)
[2018-02-16 16:20] LABS: ALANINE AMINOTRANSFERASE 20 IU/L (13-69); ALBUMIN 2.6 g/dl (3.3-4.9); ALBUMIN/GLOBULIN RATIO 0.78; ALKALINE PHOSPHATASE 81 IU/L (42-121); ANION GAP 14 (8-16); ASPARTATE AMINO TRANSFERASE 18 IU/L (15-46); BILIRUBIN,INDIRECT 0.1 mg/dl (0-1.1); BILIRUBIN,TOTAL 0.1 mg/dl (0.2-1.3); BLOOD UREA NITROGEN 13 mg/dl (7-20); CALCIUM 9.4 mg/dl (8.4-10.2); CARBON DIOXIDE 27 mmol/L (21-31); CHLORIDE 101 mmol/L (97-110); CREATININE 0.59 mg/dl (0.44-1.00); GLUCOSE 147 mg/dl (70-220); POTASSIUM 4.6 mmol/L (3.5-5.1); SODIUM 137 mmol/L (135-144); TOTAL PROTEIN 5.9 g/dl (6.1-8.1)
[2018-02-16 16:22] LABS: LACTIC ACID 2.7 mmol/L (0.5-2.0)
[2018-02-16] MEDS: ONDANSETRON 4 MG INJ IV (16:29)
[2018-02-16] MEDS: PIPER-TAZO 3.375 GM IV (PMX) 100 ML IVPB ×2 (16:30→17:08)
[2018-02-16] MEDS: SOD CHLORIDE 0.9% 1,000 ML IV (16:30)
[2018-02-16 16:32] LABS: TROPONIN-I < 0.012 ng/ml (0.000-0.120)
[2018-02-16] MEDS: VANCOMYCIN 1 GM (PMX) 250 ML IVPB (18:16)
[2018-02-16] MEDS: SODIUM CHLORIDE 0.9% 1L BAG IV* (18:16)
[2018-02-16 19:17] LABS: ADD UMIC YES; UR ASCORBIC ACID NEGATIVE (NEGATIVE); UR BACTERIA FEW /HPF (NONE SEEN); UR BILIRUBIN (Dip) NEGATIVE (NEGATIVE); UR BLOOD (Dip) 1+ mg/dL (NEGATIVE); UR CLARITY SLIGHTLY CLOUDY (CLEAR); UR COLOR YELLOW (YELLOW); UR GLUCOSE (Dip) NEGATIVE (NEGATIVE); UR KETONES (Dip) NEGATIVE (NEGATIVE); UR LEUKOCYTE ESTERASE (Dip) 3+ Leu/ul (NEGATIVE); UR NITRITE (Dip) NEGATIVE (NEGATIVE); UR NONSQUAMOUS EPITHELIAL CELL 1 /HPF (NONE SEEN); UR RBC 2 /HPF (0-5); UR SPECIFIC GRAVITY (Dip) 1.006 (1.003-1.030); UR SQUAMOUS EPITHELIAL CELL FEW /HPF (FEW); UR TOTAL PROTEIN (Dip) NEGATIVE (NEGATIVE); UR UROBILINOGEN (Dip) NEGATIVE (NEGATIVE); UR WBC 165 /HPF (0-5)
== END 2018-02-16 22:08 | disposition home or self-care (01) ==
LOC: E/R 15:12
DX: N30.00 Acute cystitis without hematuria (principal); A41.9 Sepsis, unspecified organism; R10.9 Unspecified abdominal pain; Z79.4 Long term (current) use of insulin
CPT/HCPCS: 80053; 81001; 83605; 84484; 85025; 85610; 85730; 87040; 87086; 93005; 96374; 96375; 99291-25